=== PATIENT | female | born 1965 | race Two or more races ===

== ENCOUNTER 2023-07-04 16:40 | Inpatient (IN) | payer MEDICAID ==
[~2023-07-04] VITALS: Ht 170.2 cm; Wt 60.2 kg
[2023-07-04 17:30] LABS: Eosinophils # (auto) 0 10 ^3/uL (0-0.8); Monocytes # (auto) 0.5 10 ^3/uL (0-1.3); Nucleated Red Blood Cells % 0.1 %
[2023-07-04 17:31] LABS: Basophils # (auto) 0.2 10 ^3/uL (0-0.2); Basophils % (auto) 1.1 % (0.0-2.0); Eosinophils % (auto) 0.2 % (0.0-7.0); Hematocrit 28.3 % (36.0-46.0); Hemoglobin 8.4 g/dL (12.2-16.2); Lymphocytes # (auto) 0.2 10 ^3/uL (0.4-5.4); Lymphocytes % (auto) 1.7 % (10.0-50.0); Mean Corpuscular Hemoglobin 24.3 pg (28.0-32.0); Mean Corpuscular Hgb Conc. 29.7 g/dL (32.0-36.0); Mean Corpuscular Volume 81.7 fL (80.0-100.0); Monocytes % (auto) 3.4 % (0.0-12.0); Neutrophils # (auto) 13.3 10 ^3/uL (1.6-8.6); Neutrophils % (auto) 93.6 % (37.0-80.0); Red Blood Cells 3.46 10^6/uL (4.0-5.20); White Blood Cell 14.2 10^3/uL (4.4-10.8)
[2023-07-04 17:42] LABS: Alkaline Phosphatase 108 U/L (46-116); Anion Gap 7 (5-15); Aspartate Aminotransferase 15 U/L (13-40); BUN/Creatinine Ratio 9.2 (10.0-20.0); Blood Urea Nitrogen 7 mg/dL (9-23); Calcium 8.1 mg/dL (8.5-10.1); Carbon Dioxide 26 mmol/L (20-30); Chloride 104 mmol/L (98-107); Glucose 97 mg/dL (74-106); Sodium 137 mmol/L (136-145)
[2023-07-04 17:43] LABS: Bilirubin, Total 0.4 mg/dL (0.2-1.0); Total Protein 5.9 g/dL (5.7-8.2)
[2023-07-04 18:11] LABS: Red Cell Distribution Width 22.6 % (11.8-14.3)
[2023-07-04 18:19] LABS: Alanine Aminotransferase < 9 U/L (7-40)
[2023-07-04 18:20] LABS: Potassium 2.9 mmol/L (3.5-5.1)
[2023-07-04] MEDS ORDERED: POTASSIUM EFFERVESENT TAB 25 MEQ PO ONE (18:30)
[2023-07-05] VITALS (9 sets, daily range): BP systolic 91–103; BP diastolic 54–65; PULSE 96–109; RESP 17–19; TEMP 97.9–98.4; O2SAT 96–99
[2023-07-05] MEDS ORDERED: VANCOMYCIN 1GM/250ML 250 ML IV ONE (00:45)
[2023-07-05] MEDS ORDERED: LACTATED RINGER'S 1,950 ML IV ONE (00:45)
[2023-07-05] MEDS ORDERED: PIPERACILLIN-TAZOB 3.375GM 100 ML IV ONE (00:45)
[2023-07-05] MEDS ORDERED: ALBUTEROL SULF 2.5 MG/0.5ML(0.5%) NEB SOLN NEB PRN (01:15)
[2023-07-05] MEDS ORDERED: ONDANSETRON HCL 4 MG/2 ML VIAL IV PRN (01:15)
[2023-07-05] MEDS ORDERED: NITROGLYCERIN 0.4 MG SL TAB SL PRN (01:15)
[2023-07-05] MEDS ORDERED: HYDROcodone-ACET 5/325MG TAB PO PRN (01:15)
[2023-07-05] MEDS ORDERED: MORPHINE SULFATE INJ 2 MG/ml SYRG IV PRN (01:15)
[2023-07-05] MEDS ORDERED: ACETAMINOPHEN 325 MG TAB PO PRN (01:15)
[2023-07-05 08:55] LABS: Urine Bacteria MANY /hpf (None Seen); Urine Blood 1+ /uL (Negative); Urine Clarity CLOUDY (Clear); Urine Color Yellow (Yellow); Urine Mucus FEW (None Seen); Urine Protein, UAD 2+ (Negative); Urine Specific Gravity 1.022 (1.001-1.035); Urine WBC 378 /hpf (0 - 5)
[2023-07-05] MEDS: AZITHROMYCIN 500MG/ 250ML 250 ML IV SCH (09:20)
[2023-07-05] MEDS: cefTRIAXone 1GM/50ML D5W 50 ML IV SCH (09:20)
[2023-07-05 12:46] LABS: Basophils # (auto) 0 10 ^3/uL (0-0.2); Eosinophils # (auto) 0 10 ^3/uL (0-0.8); Hemoglobin 8.1 g/dL (12.2-16.2); Monocytes # (auto) 0.6 10 ^3/uL (0-1.3); Neutrophils # (auto) 11.1 10 ^3/uL (1.6-8.6); Nucleated Red Blood Cells % 0.1 %
[2023-07-05 12:47] LABS: Basophils % (auto) 0.1 % (0.0-2.0); Eosinophils % (auto) 0.1 % (0.0-7.0); Hematocrit 27.6 % (36.0-46.0); Lymphocytes # (auto) 0.2 10 ^3/uL (0.4-5.4); Lymphocytes % (auto) 1.7 % (10.0-50.0); Mean Corpuscular Hemoglobin 24.2 pg (28.0-32.0); Mean Corpuscular Hgb Conc. 29.4 g/dL (32.0-36.0); Mean Corpuscular Volume 82.2 fL (80.0-100.0); Monocytes % (auto) 5.1 % (0.0-12.0); Red Blood Cells 3.36 10^6/uL (4.0-5.20); White Blood Cell 11.9 10^3/uL (4.4-10.8)
[2023-07-05 12:52] LABS: Red Cell Distribution Width 23.4 % (11.8-14.3)
[2023-07-05 13:47] LABS: Albumin 2.8 g/dL (3.2-4.8); Alkaline Phosphatase 98 U/L (46-116); Anion Gap 6 (5-15); Aspartate Aminotransferase 15 U/L (13-40); BUN/Creatinine Ratio 11.3 (10.0-20.0); Bilirubin, Total 0.4 mg/dL (0.2-1.0); Blood Urea Nitrogen 8 mg/dL (9-23); Calcium 8.1 mg/dL (8.5-10.1); Carbon Dioxide 28 mmol/L (20-30); Chloride 104 mmol/L (98-107); Glucose 102 mg/dL (74-106); Potassium 3.6 mmol/L (3.5-5.1); Sodium 138 mmol/L (136-145); Total Protein 5.4 g/dL (5.7-8.2)
[2023-07-05 13:49] LABS: Alanine Aminotransferase < 9 U/L (7-40)
[2023-07-05] MEDS ORDERED: LOPERAMIDE HCL 2 MG CAP/TAB PO PRN (16:30)
[2023-07-06] VITALS (9 sets, daily range): BP systolic 90–97; BP diastolic 52–57; PULSE 91–95; RESP 15–19; TEMP 98–99.3; O2SAT 95–100
[2023-07-06 07:03] LABS: Alkaline Phosphatase 91 U/L (46-116); Anion Gap 8 (5-15); BUN/Creatinine Ratio 12.3 (10.0-20.0); Blood Urea Nitrogen 9 mg/dL (9-23); Calcium 7.7 mg/dL (8.5-10.1); Carbon Dioxide 27 mmol/L (20-30); Chloride 105 mmol/L (98-107); Glucose 71 mg/dL (74-106); Potassium 3.2 mmol/L (3.5-5.1); Sodium 140 mmol/L (136-145)
[2023-07-06 07:04] LABS: Albumin 2.5 g/dL (3.2-4.8)
[2023-07-06 07:05] LABS: Aspartate Aminotransferase 13 U/L (13-40)
[2023-07-06 07:06] LABS: Bilirubin, Total 0.4 mg/dL (0.2-1.0)
[2023-07-06 07:12] LABS: Alanine Aminotransferase < 9 U/L (7-40)
[2023-07-06 07:19] LABS: Basophils # (auto) 0 10 ^3/uL (0-0.2); Basophils % (auto) 0.1 % (0.0-2.0); Eosinophils # (auto) 0 10 ^3/uL (0-0.8); Eosinophils % (auto) 0.2 % (0.0-7.0); Hematocrit 23.8 % (36.0-46.0); Hemoglobin 7.5 g/dL (12.2-16.2); Lymphocytes # (auto) 0.2 10 ^3/uL (0.4-5.4); Lymphocytes % (auto) 2.1 % (10.0-50.0); Mean Corpuscular Hemoglobin 25.4 pg (28.0-32.0); Mean Corpuscular Hgb Conc. 31.3 g/dL (32.0-36.0); Mean Corpuscular Volume 81.2 fL (80.0-100.0); Monocytes # (auto) 0.5 10 ^3/uL (0-1.3); Monocytes % (auto) 4.8 % (0.0-12.0); Neutrophils # (auto) 10.3 10 ^3/uL (1.6-8.6); Neutrophils % (auto) 92.8 % (37.0-80.0); Red Blood Cells 2.94 10^6/uL (4.0-5.20); White Blood Cell 11.1 10^3/uL (4.4-10.8)
[2023-07-06 07:22] LABS: Red Cell Distribution Width 22.9 % (11.8-14.3)
[2023-07-06] MEDS: cefTRIAXone 1GM/50ML D5W 50 ML IV SCH (09:49)
[2023-07-06 10:26] LABS: Platelet Estimate Adequate
[2023-07-06 10:27] LABS: Anisocytosis Slight; Hypochromia Slight; Ovalocytes MODERATE
[2023-07-06] MEDS: AZITHROMYCIN 500MG/ 250ML 250 ML IV SCH (10:50)
[2023-07-07] VITALS (8 sets, daily range): BP systolic 91–110; BP diastolic 55–70; PULSE 90–119; RESP 16–17; TEMP 98.1–98.9; O2SAT 97–100
[2023-07-07] MEDS: cefTRIAXone 1GM/50ML D5W 50 ML IV SCH (09:11)
[2023-07-07] MEDS: AZITHROMYCIN 500MG/ 250ML 250 ML IV SCH (11:03)
[2023-07-08 00:18] VITALS: BP 110/70; PULSE 98; RESP 18; TEMP 98; O2SAT 97
[2023-07-08 05:00] VITALS: BP 102/59; PULSE 106; RESP 16; TEMP 99.8; O2SAT 97
[2023-07-08] MEDS: cefTRIAXone 1GM/50ML D5W 50 ML IV SCH (08:40)
[2023-07-08 09:00] VITALS: BP 96/57; PULSE 93; RESP 15; TEMP 98.4; O2SAT 99
[2023-07-08] MEDS: AZITHROMYCIN 500MG/ 250ML 250 ML IV SCH (09:51)
[2023-07-08] MEDS ORDERED: AZIT-74 PO (12:04)
[2023-07-08] MEDS ORDERED: POTASSIUM CHL 20 Meq TABLET PO ONE (12:45)
[2023-07-08 13:00] VITALS: BP 91/59; PULSE 91; RESP 18; TEMP 98.2; O2SAT 98
[2023-07-08 13:06] VITALS: BP 91/59; PULSE 91; RESP 18; TEMP 98.2; O2SAT 98
== END 2023-07-08 15:00 | disposition home or self-care (01) | DRG 139 ==
LOC: ER 16:40 → TELE 07-05 01:12 → TELE-WESTW 07-05 14:43
PROVIDERS: ADMIT Internal Medicine; ATTEND Internal Medicine
DX: J15.9 Unspecified bacterial pneumonia (principal); E83.51 Hypocalcemia; E88.09 Other disorders of plasma-protein metabolism, not elsewhere classified; D64.9 Anemia, unspecified; E86.0 Dehydration; E87.6 Hypokalemia; D72.829 Elevated white blood cell count, unspecified; Z85.72 Personal history of non-Hodgkin lymphomas; R06.03 Acute respiratory distress
CPT/HCPCS: 36415; 71045; 80053; 81001; 82962; 83605; 84484; 85025; 99291; G0378; J0696

== ENCOUNTER 2023-09-01 12:36 | Inpatient (IN) | payer MEDICAID ==
[~2023-09-01] VITALS: Ht 171.4 cm; Wt 55.2 kg
[~2023-09-01 12:36] MED LIST: AZIT-74 PO
[2023-09-01] MEDS ORDERED: SODIUM CHLORIDE 0.9% 1,000 ML IVB ONE (13:00)
[2023-09-01 13:17] LABS: Hematocrit 16.4 % (36.0-46.0); Mean Corpuscular Hemoglobin 24.3 pg (28.0-32.0); Red Blood Cells 2.02 10^6/uL (4.0-5.20)
[2023-09-01 13:53] LABS: Hemoglobin 4.9 g/dL (12.2-16.2); Red Cell Distribution Width 24.9 % (11.8-14.3)
[2023-09-01 13:55] LABS: Albumin 1.9 g/dL (3.2-4.8); Alkaline Phosphatase 131 U/L (46-116); Anion Gap 11 (5-15); Aspartate Aminotransferase 13 U/L (13-40); BUN/Creatinine Ratio 18.6 (10.0-20.0); Bilirubin, Total 0.4 mg/dL (0.2-1.0); Blood Urea Nitrogen 34 mg/dL (9-23); Calcium 6.7 mg/dL (8.7-10.4); Carbon Dioxide 24 mmol/L (20-30); Chloride 105 mmol/L (98-107); Glucose 98 mg/dL (74-106); Magnesium 1.6 mg/dL (1.6-2.6); Potassium 2.5 mmol/L (3.5-5.1); Sodium 140 mmol/L (136-145)
[2023-09-01 13:56] LABS: Basophils % (manual) 0 (0.0-2.0); Eosinophils % (manual) 0 (0-7); Monocytes % (manual) 0 (0-12); Total Protein 3.9 g/dL (5.7-8.2)
[2023-09-01 13:57] LABS: Blast Cells 0; Metamyelocytes % 0; Myelocytes % 0; Promyelocytes % 0; Reactive Lymphocytes 0
[2023-09-01 13:58] LABS: Alanine Aminotransferase < 9 U/L (7-40)
[2023-09-01] MEDS ORDERED: POTASSIUM CHLORIDE 40 MEQ, LIDOCAINE 1% (LOCAL ANESTH.) 4 ML in SODIUM CHL 0.9% 250 ML IV ONE (14:30)
[2023-09-01 14:52] LABS: Lactic Acid w/Reflex 2.5 mmol/L (0.4-2.0)
[2023-09-01 15:13] LABS: Band Neutrophils % (manual) 1; Lymphocytes % (manual) 3 (10.0-50.0)
[2023-09-01 15:14] LABS: Platelet Estimate Decreased
[2023-09-01 15:22] LABS: INR 1.18 (0.9-1.15); Prothrombin Time 12.3 sec (9.3-11.8)
[2023-09-01 19:20] VITALS: PULSE 102; RESP 18; O2SAT 92
[2023-09-01] MEDS ORDERED: MORPHINE SULFATE INJ 2 MG/ml SYRG IV PRN (20:30)
[2023-09-01] MEDS ORDERED: ONDANSETRON HCL 4 MG/2 ML VIAL IV PRN (20:30)
[2023-09-01] MEDS ORDERED: DOCUSATE SOD 100 MG CAP PO PRN (20:30)
[2023-09-01] MEDS ORDERED: ACETAMINOPHEN 325 MG TAB PO PRN (20:30)
[2023-09-01] MEDS ORDERED: HYDROcodone-ACET 5/325MG TAB PO PRN (20:30)
[2023-09-01] MEDS ORDERED: diphenhdrAMINE HCL 50 MG/1 ML VL IV ONE (20:45)
[2023-09-01 21:18] LABS: Basophils # (auto) 0 10 ^3/uL (0-0.2); Eosinophils # (auto) 0 10 ^3/uL (0-0.8); Eosinophils % (auto) 0.1 % (0.0-7.0); Monocytes # (auto) 0.5 10 ^3/uL (0-1.3)
[2023-09-01 21:19] LABS: Lymphocytes # (auto) 0.3 10 ^3/uL (0.4-5.4); Lymphocytes % (auto) 2.1 % (10.0-50.0); Mean Corpuscular Hemoglobin 23.9 pg (28.0-32.0); Mean Corpuscular Hgb Conc. 28.2 g/dL (32.0-36.0); Mean Corpuscular Volume 84.6 fL (80.0-100.0); Monocytes % (auto) 3.1 % (0.0-12.0); Neutrophils # (auto) 14.4 10 ^3/uL (1.6-8.6); Neutrophils % (auto) 94.7 % (37.0-80.0); Nucleated Red Blood Cells % 0.1 %; Red Blood Cells 1.77 10^6/uL (4.0-5.20); Red Cell Distribution Width 24.8 % (11.8-14.3); White Blood Cell 15.2 10^3/uL (4.4-10.8)
[2023-09-01 21:21] LABS: Hemoglobin 4.2 g/dL (12.2-16.2)
[2023-09-01 21:27] LABS: Chloride 107 mmol/L (98-107); Potassium 2.6 mmol/L (3.5-5.1); Sodium 141 mmol/L (136-145)
[2023-09-01 21:28] LABS: Anion Gap 12 (5-15); Calcium 6.5 mg/dL (8.7-10.4); Carbon Dioxide 22 mmol/L (20-30)
[2023-09-01 21:33] LABS: BUN/Creatinine Ratio 12.7 (10.0-20.0); Blood Urea Nitrogen 23 mg/dL (9-23); Glucose 78 mg/dL (74-106)
[2023-09-01 21:50] VITALS: BP 83/50; PULSE 99; RESP 18; TEMP 97.5
[2023-09-01 22:05] VITALS: BP 70/39; PULSE 100; RESP 22; TEMP 97.9
[2023-09-01] MEDS: SODIUM CHLORIDE 0.9% 1,000 ML IV SCH (23:57)
[2023-09-02] VITALS (10 sets, daily range): BP systolic 78–97; BP diastolic 43–62; PULSE 81–100; RESP 18–22; TEMP 97.6–98; O2SAT 94–100
[2023-09-02 01:57] LABS: Urine Bacteria NONE SEEN /hpf (None Seen); Urine Blood 2+ /uL (Negative); Urine Clarity CLOUDY (Clear); Urine Color Yellow (Yellow); Urine Protein, UAD 1+ (Negative); Urine Specific Gravity 1.017 (1.001-1.035); Urine Urobilinogen Normal (Negative); Urine WBC 1295 /hpf (0 - 5); Urine WBC Clumps PRESENT /hpf (None Seen); Urine pH 5.5 (5.0-8.0)
[2023-09-02] MEDS ORDERED: MAGNESIUM SULFATE 1GM/100ML 100 ML IV ONE (02:49)
[2023-09-02] MEDS: MAGNESIUM SULFATE 1GM/100ML 100 ML IV SCH ×4 (03:10→18:09)
[2023-09-02] MEDS ORDERED: cefTRIAXone 1GM/50ML D5W 50 ML IV ONE (04:15)
[2023-09-02 04:20] LABS: Basophils # (auto) 0 10 ^3/uL (0-0.2); Eosinophils # (auto) 0 10 ^3/uL (0-0.8); Eosinophils % (auto) 0.1 % (0.0-7.0); Hemoglobin 9.5 g/dL (12.2-16.2); Lymphocytes # (auto) 0.3 10 ^3/uL (0.4-5.4); Lymphocytes % (auto) 1.8 % (10.0-50.0); Mean Corpuscular Hemoglobin 27.3 pg (28.0-32.0); Mean Corpuscular Hgb Conc. 32.7 g/dL (32.0-36.0); Mean Corpuscular Volume 83.4 fL (80.0-100.0); Monocytes # (auto) 0.5 10 ^3/uL (0-1.3); Monocytes % (auto) 2.6 % (0.0-12.0); Neutrophils # (auto) 16.8 10 ^3/uL (1.6-8.6); Neutrophils % (auto) 95.5 % (37.0-80.0); Nucleated Red Blood Cells % 0.2 %; Red Blood Cells 3.47 10^6/uL (4.0-5.20); Red Cell Distribution Width 17.8 % (11.8-14.3); White Blood Cell 17.6 10^3/uL (4.4-10.8)
[2023-09-02 04:39] LABS: Albumin 1.9 g/dL (3.2-4.8); Alkaline Phosphatase 130 U/L (46-116); Anion Gap 10 (5-15); Aspartate Aminotransferase 16 U/L (13-40); BUN/Creatinine Ratio 15.1 (10.0-20.0); Blood Urea Nitrogen 26 mg/dL (9-23); Calcium 6.7 mg/dL (8.7-10.4); Carbon Dioxide 23 mmol/L (20-30); Chloride 107 mmol/L (98-107); Glucose 84 mg/dL (74-106); Potassium 2.5 mmol/L (3.5-5.1); Sodium 140 mmol/L (136-145)
[2023-09-02 04:40] LABS: Bilirubin, Total 1.5 mg/dL (0.2-1.0); Total Protein 3.9 g/dL (5.7-8.2)
[2023-09-02 04:42] LABS: Alanine Aminotransferase < 9 U/L (7-40)
[2023-09-02] MEDS ORDERED: LACTATED RINGER'S 2,000 ML IV ONE (04:45)
[2023-09-02] MEDS ORDERED: metroNIDAZOLE 500MG/100ML 100 ML IV ONE (04:45)
[2023-09-02] MEDS: SODIUM CHLORIDE 0.9% 1,000 ML IV SCH ×4 (06:49→22:45)
[2023-09-02] MEDS ORDERED: POTASSIUM EFFERVESENT TAB 25 MEQ GT ONE (08:00)
[2023-09-02] MEDS ORDERED: ENOXAPARIN SOD 30 MG/0.3 ML SYRINGE SC SCH (10:00)
[2023-09-02] MEDS ORDERED: ENOXAPARIN SOD 40 MG/0.4 ML SYRINGE SC SCH (10:00)
[2023-09-02] MEDS ORDERED: AZITHROMYCIN 500MG/ 250ML 250 ML IV SCH (10:00)
[2023-09-02] MEDS ORDERED: DOXYCYCLINE 100 MG TAB/CAP PO SCH (12:45)
[2023-09-02] MEDS ORDERED: SOD CHL 0.9%/ KCL 20MEQ 1,000 ML IV SCH (13:45)
[2023-09-02] MEDS ORDERED: POTASSIUM CHLORIDE 40 MEQ, LIDOCAINE 1% (LOCAL ANESTH.) 4 ML in SODIUM CHL 0.9% 250 ML IV ONE (13:45)
[2023-09-02] MEDS ORDERED: SODIUM CHLORIDE 0.9% 1,000 ML IV ONE (14:45)
[2023-09-02] MEDS ORDERED: VANCOMYCIN 1GM/200ML 200 ML IV ONE (17:15)
[2023-09-02 21:03] LABS: Potassium 3.2 mmol/L (3.5-5.1)
[2023-09-02 21:10] LABS: Magnesium 2.4 mg/dL (1.6-2.6)
[2023-09-02] MEDS: MAGNESIUM OXIDE 400 MG TAB PO SCH (21:35)
[2023-09-03 05:00] VITALS: BP 95/56; PULSE 97; RESP 18; TEMP 97.9; O2SAT 94
[2023-09-03 06:49] LABS: Hemoglobin 9.4 g/dL (12.2-16.2); Red Blood Cells 3.52 10^6/uL (4.0-5.20)
[2023-09-03 06:51] LABS: Hematocrit 29.4 % (36.0-46.0); Mean Corpuscular Hemoglobin 26.7 pg (28.0-32.0); Mean Corpuscular Volume 83.5 fL (80.0-100.0); Red Cell Distribution Width 18.3 % (11.8-14.3); White Blood Cell 20.6 10^3/uL (4.4-10.8)
[2023-09-03 06:57] LABS: Chloride 109 mmol/L (98-107); Potassium 3.4 mmol/L (3.5-5.1); Sodium 141 mmol/L (136-145)
[2023-09-03 06:58] LABS: Anion Gap 10 (5-15); Calcium 6.9 mg/dL (8.7-10.4); Carbon Dioxide 22 mmol/L (20-30)
[2023-09-03 07:03] LABS: BUN/Creatinine Ratio 15.6 (10.0-20.0); Blood Urea Nitrogen 23 mg/dL (9-23); Glucose 67 mg/dL (74-106)
[2023-09-03 07:04] LABS: Magnesium 2.2 mg/dL (1.6-2.6)
[2023-09-03 07:20] LABS: Band Neutrophils % (manual) 0; Basophils % (manual) 0 (0.0-2.0); Blast Cells 0; Eosinophils % (manual) 0 (0-7); Metamyelocytes % 0; Myelocytes % 0; Promyelocytes % 0; Reactive Lymphocytes 0
[2023-09-03 08:00] VITALS: BP 89/71; PULSE 101; PULSE 89; RESP 18; RESP 20; TEMP 98.3; O2SAT 95; O2SAT 96
[2023-09-03 09:11] LABS: Lymphocytes % (manual) 1 (10.0-50.0); Monocytes % (manual) 1 (0-12); Platelet Estimate Decreased
[2023-09-03] MEDS: cefTRIAXone 1GM/50ML D5W 50 ML IV SCH (09:45)
[2023-09-03] MEDS: MAGNESIUM OXIDE 400 MG TAB PO SCH (09:46)
[2023-09-03] MEDS: SODIUM CHLORIDE 0.9% 1,000 ML IV SCH ×2 (09:46→22:45)
[2023-09-03] MEDS: PANTOPRAZOLE 40 MG TAB PO SCH (09:46)
[2023-09-03] MEDS ORDERED: POTASSIUM CHL 20 Meq TABLET PO ONE (10:15)
[2023-09-03] MEDS ORDERED: FLUDROCORTISONE ACETATE 0.1 MG TAB PO ONE (10:15)
[2023-09-03] MEDS ORDERED: VANCOMYCIN PER PHARMACY 0 MG IV SCH (10:15)
[2023-09-03] MEDS ORDERED: VANCOMYCIN 1GM/200ML 200 ML IV ONE ×2 (11:45→20:00)
[2023-09-03] MEDS: guaiFENesin-DM 100/10mg/5ml SYR PO PRN ×2 (13:21→22:41)
[2023-09-03] MEDS: diphenhdrAMINE HCL 25 MG CAP PO PRN (13:22)
[2023-09-03 14:00] VITALS: BP 97/60
[2023-09-03 16:49] VITALS: BP 94/60; PULSE 94; RESP 18; TEMP 97.6; O2SAT 92
[2023-09-03 20:00] VITALS: BP 102/65; PULSE 93; PULSE 98; RESP 17; TEMP 98.2; O2SAT 96
[2023-09-03 22:22] VITALS: BP 102/65; PULSE 93; RESP 17; TEMP 98.2; O2SAT 96
[2023-09-04] VITALS (11 sets, daily range): BP systolic 82–103; BP diastolic 52–71; PULSE 86–107; RESP 17–19; TEMP 97.9–98.2; O2SAT 94–100
[2023-09-04] MEDS ORDERED: ALBUTEROL SULF 2.5 MG/0.5ML(0.5%) NEB SOLN NEB PRN (00:30)
[2023-09-04] MEDS: SODIUM CHLORIDE 0.9% 1,000 ML IV SCH ×2 (06:33→18:55)
[2023-09-04 08:25] LABS: Hemoglobin 8.9 g/dL (12.2-16.2); Mean Corpuscular Hemoglobin 26.8 pg (28.0-32.0); Mean Corpuscular Hgb Conc. 30.9 g/dL (32.0-36.0); Mean Corpuscular Volume 86.9 fL (80.0-100.0); Red Blood Cells 3.33 10^6/uL (4.0-5.20); Red Cell Distribution Width 19.2 % (11.8-14.3); White Blood Cell 24.4 10^3/uL (4.4-10.8)
[2023-09-04 08:27] LABS: Basophils % (manual) 0 (0.0-2.0); Blast Cells 0; Eosinophils % (manual) 0 (0-7); Metamyelocytes % 0; Myelocytes % 0; Promyelocytes % 0; Reactive Lymphocytes 0
[2023-09-04 08:33] LABS: Chloride 112 mmol/L (98-107); Sodium 142 mmol/L (136-145)
[2023-09-04 08:34] LABS: Anion Gap 9 (5-15); Calcium 7.3 mg/dL (8.5-10.1); Carbon Dioxide 21 mmol/L (20-30)
[2023-09-04 08:39] LABS: Blood Urea Nitrogen 20 mg/dL (9-23); Glucose 87 mg/dL (74-106)
[2023-09-04 10:18] LABS: Band Neutrophils % (manual) 3; Lymphocytes % (manual) 1 (10.0-50.0); Monocytes % (manual) 1 (0-12); Platelet Estimate Decreased
[2023-09-04] MEDS: PANTOPRAZOLE 40 MG TAB PO SCH (10:59)
[2023-09-04] MEDS: FLUDROCORTISONE ACETATE 0.1 MG TAB PO SCH (10:59)
[2023-09-04] MEDS: cefTRIAXone 1GM/50ML D5W 50 ML IV SCH (10:59)
[2023-09-04] MEDS: MAGNESIUM OXIDE 400 MG TAB PO SCH (10:59)
[2023-09-04] MEDS: guaiFENesin-DM 100/10mg/5ml SYR PO PRN (11:00)
[2023-09-04] MEDS: diphenhdrAMINE HCL 25 MG CAP PO PRN (11:02)
[2023-09-04] MEDS ORDERED: CEFEPIME 1GM/ 50ML 50 ML IV ONE (12:15)
[2023-09-04] MEDS ORDERED: hydrOXYzine HCL 10 MG TAB PO PRN (16:15)
[2023-09-04] MEDS ORDERED: PROMETHAZINE W/CODEINE 5 ML ORAL SYRUP PO PRN (16:15)
[2023-09-04] MEDS ORDERED: PROMETHAZINE HCL 25 MG/ML 1ML IV PRN (16:15)
[2023-09-04 17:49] LABS: INR 1.25 (0.9-1.15); Partial Thromboplastin Time 29.9 SEC (24.5-34.5); Prothrombin Time 12.9 sec (9.3-11.8)
[2023-09-04 17:51] LABS: % Iron Saturation 27.3 % (15-50)
[2023-09-04] MEDS: HYDROCORTISONE 2.5% TOPICAL CREAM 30GM TUBE TOP SCH (20:59)
[2023-09-04] MEDS: CEFEPIME 1GM/ 50ML 50 ML IV SCH (20:59)
[2023-09-05] VITALS (9 sets, daily range): BP systolic 75–89; BP diastolic 51–61; PULSE 94–110; RESP 17–20; TEMP 97.6–98.3; O2SAT 92–100
[2023-09-05] MEDS: SODIUM CHLORIDE 0.9% 1,000 ML IV SCH ×2 (04:20→17:40)
[2023-09-05] MEDS: FLUDROCORTISONE ACETATE 0.1 MG TAB PO SCH (10:20)
[2023-09-05] MEDS: CEFEPIME 1GM/ 50ML 50 ML IV SCH ×2 (10:20→23:04)
[2023-09-05] MEDS: PANTOPRAZOLE 40 MG TAB PO SCH (10:20)
[2023-09-05] MEDS: MAGNESIUM OXIDE 400 MG TAB PO SCH (10:20)
[2023-09-05] MEDS: HYDROCORTISONE 2.5% TOPICAL CREAM 30GM TUBE TOP SCH ×2 (10:21→23:04)
[2023-09-05] MEDS ORDERED: HYDROCORTISONE SOD SUCC 100 MG/2ML INJ VIAL IV ONE (13:30)
[2023-09-05] MEDS: ALBUMIN 25% 100 ML IV SCH ×2 (14:08→21:27)
[2023-09-05 14:12] LABS: Body Fluid Polymorphonuclear 94 % (0-25); Body Fluid Red Blood Cells 2140 CUMM (0-2000); Body Fluid White Blood Cells 1330 CUMM (0-200)
[2023-09-05 22:35] LABS: Hematocrit 26.7 % (36.0-46.0); Red Blood Cells 2.95 10^6/uL (4.0-5.20)
[2023-09-05 22:39] LABS: Hemoglobin 7.9 g/dL (12.2-16.2); Mean Corpuscular Hemoglobin 26.7 pg (28.0-32.0); Mean Corpuscular Hgb Conc. 29.6 g/dL (32.0-36.0); Mean Corpuscular Volume 90.2 fL (80.0-100.0); White Blood Cell 12.9 10^3/uL (4.4-10.8)
[2023-09-05 22:45] LABS: Basophils % (manual) 0 (0.0-2.0); Blast Cells 0; Eosinophils % (manual) 0 (0-7); Metamyelocytes % 0; Myelocytes % 0; Promyelocytes % 0; Reactive Lymphocytes 0; Red Cell Distribution Width 20.2 % (11.8-14.3)
[2023-09-05 22:51] LABS: Chloride 109 mmol/L (98-107); Potassium 4.1 mmol/L (3.5-5.1)
[2023-09-05 22:52] LABS: Anion Gap 10 (5-15); Carbon Dioxide 17 mmol/L (20-30)
[2023-09-05 22:53] LABS: Calcium 7.1 mg/dL (8.7-10.4)
[2023-09-05 22:57] LABS: BUN/Creatinine Ratio 10.9 (10.0-20.0); Blood Urea Nitrogen 19 mg/dL (9-23); Glucose 155 mg/dL (74-106)
[2023-09-05 23:05] LABS: Sodium 136 mmol/L (136-145)
[2023-09-05 23:12] LABS: Band Neutrophils % (manual) 2; Lymphocytes % (manual) 1 (10.0-50.0); Monocytes % (manual) 1 (0-12)
[2023-09-05 23:14] LABS: Platelet Estimate Decreased
[2023-09-06] VITALS (9 sets, daily range): BP systolic 86–95; BP diastolic 53–61; PULSE 63–98; RESP 17–20; TEMP 97.5–98.1; O2SAT 92–96
[2023-09-06] MEDS: FLUDROCORTISONE ACETATE 0.1 MG TAB PO SCH ×3 (08:59→21:58)
[2023-09-06] MEDS: CEFEPIME 1GM/ 50ML 50 ML IV SCH ×2 (08:59→21:52)
[2023-09-06] MEDS: PANTOPRAZOLE 40 MG TAB PO SCH (09:00)
[2023-09-06] MEDS: MAGNESIUM OXIDE 400 MG TAB PO SCH (09:00)
[2023-09-06] MEDS: HYDROCORTISONE 2.5% TOPICAL CREAM 30GM TUBE TOP SCH ×2 (09:46→22:00)
[2023-09-06 10:06] LABS: Albumin, Body Fluid 0.5 g/dL (Not Estab.); Protein, Body Fluid 1.6 g/dL (.)
[2023-09-06] MEDS: ALBUMIN 25% 100 ML IV SCH (10:30)
[2023-09-06] MEDS: SODIUM CHLORIDE 0.9% 1,000 ML IV SCH ×2 (12:29→20:20)
[2023-09-06] MEDS ORDERED: ALBUMIN 25% 100 ML IV ONE (12:30)
[2023-09-07 05:00] VITALS: BP_SYST 118; BP_SYST 139; BP_DIAS 66; BP_DIAS 76; PULSE 64; PULSE 83; RESP 19; TEMP 97.4; TEMP 98; O2SAT 90; O2SAT 91
[2023-09-07] MEDS: FLUDROCORTISONE ACETATE 0.1 MG TAB PO SCH ×2 (06:36→14:04)
[2023-09-07 08:00] VITALS: PULSE 61
[2023-09-07 08:20] VITALS: BP 95/67; PULSE 83; RESP 20; TEMP 97.9; O2SAT 99
[2023-09-07 09:11] VITALS: BP 95/67; PULSE 83; RESP 20; O2SAT 99
[2023-09-07] MEDS: SODIUM CHLORIDE 0.9% 1,000 ML IV SCH (09:40)
[2023-09-07] MEDS: HYDROCORTISONE 2.5% TOPICAL CREAM 30GM TUBE TOP SCH (09:43)
[2023-09-07] MEDS: CEFEPIME 1GM/ 50ML 50 ML IV SCH (09:52)
[2023-09-07] MEDS: MAGNESIUM OXIDE 400 MG TAB PO SCH (09:55)
[2023-09-07] MEDS: PANTOPRAZOLE 40 MG TAB PO SCH (09:55)
[2023-09-07 12:20] VITALS: BP 96/66; PULSE 78; RESP 20; TEMP 99.7; O2SAT 95
[2023-09-07 16:15] VITALS: BP 105/68; PULSE 96; RESP 22; TEMP 98.1; O2SAT 93
== END 2023-09-07 19:45 | DRG 720 ==
LOC: EDBD 12:36 → ER 12:36 → TELE 20:32 → TELE-WESTW 23:52 → TELE 09-02 00:04 → TELE-WESTW 09-02 15:22
PROVIDERS: ADMIT Internal Medicine; ATTEND Hospitalist
PROC: 30233N1 Transfusion of Nonautologous Red Blood Cells into Peripheral Vein, Percutaneous Approach (ICD-10-PCS; principal; 2023-09-01)
PROC: 0W9B3ZZ Drainage of Left Pleural Cavity, Percutaneous Approach (ICD-10-PCS; 2023-09-05)
DX: A41.9 Sepsis, unspecified organism (principal); E43 Unspecified severe protein-calorie malnutrition; E87.20 Acidosis, unspecified; J18.9 Pneumonia, unspecified organism; J90 Pleural effusion, not elsewhere classified; N17.9 Acute kidney failure, unspecified; E77.8 Other disorders of glycoprotein metabolism; D64.9 Anemia, unspecified; E87.6 Hypokalemia; I12.9 Hypertensive chronic kidney disease with stage 1 through stage 4 chronic kidney disease, or unspecified chronic kidney disease; N18.9 Chronic kidney disease, unspecified; J98.11 Atelectasis; E83.42 Hypomagnesemia; K52.9 Noninfective gastroenteritis and colitis, unspecified; N13.6 Pyonephrosis; Z68.1 Body mass index [BMI] 19.9 or less, adult; Z85.71 Personal history of Hodgkin lymphoma
CPT/HCPCS: 36415; 36430; 71045; 74176; 76604; 76942; 80048; 80053; 80202; 81001; 82270; 83540; 83550; 83605; 83735; 83986; 84132; 84484; 85007; 85025; 85027; 85384; 85610; 85730; 86850; 86900; 86901; 86920; 87040; 87045; 87077; 87086; 87186; 87205; 87427; 87493; 89051; 93005; 94640; 97110; 97116; 97163; 97530; G0378; J2001; J2405; J3490; P9047

== ENCOUNTER 2023-09-09 00:28 | Inpatient (IN) | payer MEDICAID ==
[~2023-09-09] VITALS: Ht 172.7 cm; Wt 96.1 kg
[2023-09-09] VITALS (16 sets, daily range): BP systolic 108; BP diastolic 70; PULSE 82–121; RESP 12–20; O2SAT 91–98
[2023-09-09] MEDS ORDERED: DEXTROSE 50% SYRINGE 50 ML IV ONE (00:56)
[2023-09-09] MEDS ORDERED: cefTRIAXone SOD 1,000 MG VL IV ONE (01:00)
[2023-09-09] MEDS ORDERED: DEXTROSE (50%) 50ML SYRG IV ONE (01:00)
[2023-09-09] MEDS ORDERED: cefTRIAXone 1GM/50ML D5W 50 ML IV ONE (01:30)
[2023-09-09 01:32] LABS: Urine Epithelial Cast None Seen /hpf (<5)
[2023-09-09 01:47] LABS: Mean Corpuscular Hemoglobin 26.8 pg (28.0-32.0); Mean Corpuscular Hgb Conc. 31.1 g/dL (32.0-36.0); White Blood Cell 29.2 10^3/uL (4.4-10.8)
[2023-09-09 01:50] LABS: Urine Bacteria NONE SEEN /hpf (None Seen); Urine Blood 3+ /uL (Negative); Urine Clarity CLOUDY (Clear); Urine Color PINK (Yellow); Urine Protein, UAD 2+ (Negative); Urine Specific Gravity 1.013 (1.001-1.035); Urine Urobilinogen Normal (Negative); Urine WBC 757 /hpf (0 - 5); Urine WBC Clumps PRESENT /hpf (None Seen)
[2023-09-09 01:53] LABS: Hemoglobin 8.7 g/dL (12.2-16.2); Mean Corpuscular Volume 86.3 fL (80.0-100.0); Red Blood Cells 3.25 10^6/uL (4.0-5.20)
[2023-09-09 01:56] LABS: Red Cell Distribution Width 20.7 % (11.8-14.3)
[2023-09-09 01:57] LABS: Alanine Aminotransferase 10 U/L (7-40); Alkaline Phosphatase 102 U/L (46-116); Anion Gap 12 (5-15); BUN/Creatinine Ratio 13.7 (10.0-20.0); Blood Urea Nitrogen 28 mg/dL (9-23); Calcium 7.5 mg/dL (8.7-10.4); Carbon Dioxide 19 mmol/L (20-30); Chloride 112 mmol/L (98-107); Glucose 55 mg/dL (74-106); Potassium 3.8 mmol/L (3.5-5.1); Sodium 143 mmol/L (136-145)
[2023-09-09 01:58] LABS: Albumin 2.1 g/dL (3.2-4.8); Aspartate Aminotransferase 47 U/L (13-40); Bilirubin, Total 0.2 mg/dL (0.2-1.0); Total Protein 3.9 g/dL (5.7-8.2)
[2023-09-09 02:00] LABS: Band Neutrophils % (manual) 0; Basophils % (manual) 0 (0.0-2.0); Blast Cells 0; Eosinophils % (manual) 0 (0-7); Metamyelocytes % 0; Monocytes % (manual) 0 (0-12); Myelocytes % 0; Promyelocytes % 0; Reactive Lymphocytes 0
[2023-09-09 02:02] LABS: Lactic Acid w/Reflex 2.2 mmol/L (0.4-2.0)
[2023-09-09 02:06] LABS: Amphetamine Screen, Urine Neg (NEGATIVE)
[2023-09-09 02:07] LABS: Barbiturate Scree,Urine Neg (NEGATIVE); Benzodiazephine Screen, Urine Neg (NEGATIVE); Cannabinoid Screen, Urine Neg (NEGATIVE); Cocaine Screen, Urine Neg (NEGATIVE); Opiate Scree,Urine Pos (NEGATIVE); Phencyclidine Screen, Urine Neg (NEGATIVE)
[2023-09-09 03:11] LABS: Lymphocytes % (manual) 2 (10.0-50.0)
[2023-09-09 03:12] LABS: Platelet Estimate Decreased
[2023-09-09] MEDS ORDERED: SODIUM CHLORIDE 0.9% 1,000 ML IV ONE ×3 (03:15→13:15)
[2023-09-09] MEDS ORDERED: MORPHINE SULFATE INJ 2 MG/ml SYRG IV PRN (06:30)
[2023-09-09] MEDS ORDERED: DEXTROSE (50%) 50ML SYRG IV PRN (06:30)
[2023-09-09] MEDS ORDERED: NITROGLYCERIN 0.4 MG SL TAB SL PRN (06:30)
[2023-09-09] MEDS ORDERED: ONDANSETRON HCL 4 MG/2 ML VIAL IV PRN (06:30)
[2023-09-09] MEDS ORDERED: D5W/SOD CHL 0.45% 1,000 ML IV ONE (06:45)
[2023-09-09] MEDS: DexAMETHasone SOD PHOS 10MG/1ML VIAL INJ IV SCH ×2 (06:58→09:44)
[2023-09-09] MEDS: NOREPINEPHRINE 8 MG/250ML KIT 250 ML IV SCH (07:02)
[2023-09-09 07:15] LABS: Rapid Influenza A Positive (Negative); Rapid Influenza B Negative (Negative)
[2023-09-09 07:18] LABS: COVID19 ANTIGEN SOFIA FIA NEGATIVE (NEGATIVE)
[2023-09-09 07:44] LABS: Base Excess -8.5 mmol/L (-2.0-2.0)
[2023-09-09] MEDS: D5W/SOD CHL 0.45% 1,000 ML IV SCH ×2 (08:35→16:21)
[2023-09-09] MEDS: IPRATROPIUM BROM 0.5 MG/2.5ML INH SOL NEB SCH ×4 (09:31→22:17)
[2023-09-09] MEDS: ALBUTEROL SULF 2.5 MG/0.5ML(0.5%) NEB SOLN NEB SCH ×4 (09:31→22:17)
[2023-09-09] MEDS: PANTOPRAZOLE 40 MG/10 ML VIAL INJ IV SCH (09:44)
[2023-09-09] MEDS ORDERED: cefTRIAXone 1GM/50ML D5W 50 ML IV SCH (10:00)
[2023-09-09] MEDS: ACCU-CHEK COMFORT CURVE STRIP VI SCH ×2 (12:07→17:33)
[2023-09-09] MEDS: InsuLIN REG 1unit/0.01ml Soln (100units/ml) SC SCH ×2 (12:13→17:34)
[2023-09-09 12:59] LABS: Lactic Acid w/Reflex 2.1 mmol/L (0.4-2.0)
[2023-09-09] MEDS ORDERED: OSELTAMIVIR 75 MG CAP PO SCH (13:15)
[2023-09-09] MEDS ORDERED: VANCOMYCIN PER PHARMACY 0 MG IV SCH (13:15)
[2023-09-09] MEDS ORDERED: VANCOMYCIN 750mg/150ml 250 ML IV ONE (13:15)
[2023-09-09 17:12] LABS: Lactic Acid w/Reflex 2.4 mmol/L (0.4-2.0)
[2023-09-09] MEDS ORDERED: SODIUM CHLORIDE 0.9% 500 ML IV ONE (17:30)
[2023-09-09] MEDS: CEFEPIME 1GM/ 50ML 50 ML IV SCH (17:40)
[2023-09-09] MEDS: MIDODRINE HCL 10 MG TAB PO SCH (17:41)
[2023-09-10] VITALS (14 sets, daily range): PULSE 85–101; RESP 16–20; O2SAT 90–99
[2023-09-10] MEDS: ACCU-CHEK COMFORT CURVE STRIP VI SCH ×4 (00:35→18:20)
[2023-09-10] MEDS: InsuLIN REG 1unit/0.01ml Soln (100units/ml) SC SCH ×5 (00:43→23:43)
[2023-09-10] MEDS: D5W/SOD CHL 0.45% 1,000 ML IV SCH ×3 (00:49→18:21)
[2023-09-10] MEDS: CEFEPIME 1GM/ 50ML 50 ML IV SCH ×3 (01:09→18:21)
[2023-09-10] MEDS: IPRATROPIUM BROM 0.5 MG/2.5ML INH SOL NEB SCH ×6 (02:13→23:20)
[2023-09-10] MEDS: ALBUTEROL SULF 2.5 MG/0.5ML(0.5%) NEB SOLN NEB SCH ×6 (02:13→23:20)
[2023-09-10 02:25] LABS: Lactic Acid w/Reflex 3.1 mmol/L (0.4-2.0)
[2023-09-10 03:25] LABS: Hemoglobin 8.5 g/dL (12.2-16.2); Mean Corpuscular Hemoglobin 26.5 pg (28.0-32.0); Red Blood Cells 3.19 10^6/uL (4.0-5.20)
[2023-09-10 03:28] LABS: Hematocrit 28.5 % (36.0-46.0); Mean Corpuscular Hgb Conc. 29.6 g/dL (32.0-36.0); Mean Corpuscular Volume 89.6 fL (80.0-100.0)
[2023-09-10 03:40] LABS: Chloride 114 mmol/L (98-107); Potassium 3.7 mmol/L (3.5-5.1); Sodium 141 mmol/L (136-145)
[2023-09-10 03:41] LABS: Anion Gap 13 (5-15); Carbon Dioxide 14 mmol/L (20-30)
[2023-09-10 03:42] LABS: Calcium 6.9 mg/dL (8.7-10.4)
[2023-09-10 03:46] LABS: Glucose 225 mg/dL (74-106)
[2023-09-10 03:47] LABS: BUN/Creatinine Ratio 18.2 (10.0-20.0); Blood Urea Nitrogen 37 mg/dL (9-23)
[2023-09-10 04:03] LABS: Basophils % (manual) 0 (0.0-2.0); Blast Cells 0; Eosinophils % (manual) 0 (0-7); Metamyelocytes % 0; Myelocytes % 0; Promyelocytes % 0; Reactive Lymphocytes 0
[2023-09-10] MEDS: NOREPINEPHRINE 8 MG/250ML KIT 250 ML IV SCH (06:30)
[2023-09-10] MEDS: MIDODRINE HCL 10 MG TAB PO SCH ×3 (06:49→18:00)
[2023-09-10 07:02] LABS: Band Neutrophils % (manual) 9; Lymphocytes % (manual) 1 (10.0-50.0); Monocytes % (manual) 1 (0-12)
[2023-09-10 07:03] LABS: Anisocytosis Slight; Hypochromia Slight; Ovalocytes FEW
[2023-09-10 07:04] LABS: Large Platelets FEW; Platelet Estimate Decreased
[2023-09-10] MEDS: OSELTAMIVIR 30 MG CAP PO SCH (10:00)
[2023-09-10] MEDS: DexAMETHasone SOD PHOS 10MG/1ML VIAL INJ IV SCH (10:47)
[2023-09-10] MEDS: PANTOPRAZOLE 40 MG/10 ML VIAL INJ IV SCH (10:49)
[2023-09-10] MEDS: VANCOMYCIN 750mg/150ml 250 ML IV SCH (12:18)
[2023-09-10 17:52] LABS: Base Excess -10.3 mmol/L (-2.0-2.0)
[2023-09-10 19:36] LABS: INR 1.18 (0.9-1.15); Prothrombin Time 12.3 sec (9.3-11.8)
[2023-09-11] VITALS (18 sets, daily range): BP systolic 101–107; BP diastolic 48–73; PULSE 79–117; RESP 16–24; TEMP 97.8; O2SAT 79–98
[2023-09-11] MEDS: D5W/SOD CHL 0.45% 1,000 ML IV SCH ×3 (00:15→16:15)
[2023-09-11] MEDS: CEFEPIME 1GM/ 50ML 50 ML IV SCH ×3 (01:30→19:54)
[2023-09-11] MEDS: ALBUTEROL SULF 2.5 MG/0.5ML(0.5%) NEB SOLN NEB SCH ×6 (03:02→22:31)
[2023-09-11] MEDS: IPRATROPIUM BROM 0.5 MG/2.5ML INH SOL NEB SCH ×6 (03:02→22:32)
[2023-09-11] MEDS: MIDODRINE HCL 10 MG TAB PO SCH ×3 (06:00→18:00)
[2023-09-11] MEDS: InsuLIN REG 1unit/0.01ml Soln (100units/ml) SC SCH ×3 (06:00→18:00)
[2023-09-11] MEDS: NOREPINEPHRINE 8 MG/250ML KIT 250 ML IV SCH (06:12)
[2023-09-11] MEDS: ACCU-CHEK COMFORT CURVE STRIP VI SCH ×4 (06:28→19:56)
[2023-09-11] MEDS ORDERED: HEPARIN DRIP/D5W 100UNITS/ML 250 ML IV SCH (07:45)
[2023-09-11] MEDS ORDERED: HEPARIN SODIUM (PORCINE) 5000 UNITS/ML 1ML VIAL IV ONE (07:45)
[2023-09-11] MEDS: OSELTAMIVIR 30 MG CAP PO SCH ×2 (10:00→10:13)
[2023-09-11] MEDS: DexAMETHasone SOD PHOS 10MG/1ML VIAL INJ IV SCH (10:13)
[2023-09-11] MEDS: PANTOPRAZOLE 40 MG/10 ML VIAL INJ IV SCH (10:13)
[2023-09-11] MEDS: VANCOMYCIN 750mg/150ml 250 ML IV SCH (15:21)
[2023-09-11 21:51] LABS: Hematocrit 26.6 % (36.0-46.0); Hemoglobin 7.8 g/dL (12.2-16.2); Mean Corpuscular Hemoglobin 26.2 pg (28.0-32.0); Mean Corpuscular Hgb Conc. 29.5 g/dL (32.0-36.0); Red Blood Cells 2.98 10^6/uL (4.0-5.20); Red Cell Distribution Width 21.2 % (11.8-14.3); White Blood Cell 23.2 10^3/uL (4.4-10.8)
[2023-09-11 21:55] LABS: Basophils % (manual) 0 (0.0-2.0); Blast Cells 0; Eosinophils % (manual) 0 (0-7); Metamyelocytes % 0; Myelocytes % 0; Promyelocytes % 0; Reactive Lymphocytes 0
[2023-09-11 21:58] LABS: Chloride 113 mmol/L (98-107); Sodium 140 mmol/L (136-145)
[2023-09-11 21:59] LABS: Anion Gap 9 (5-15); Calcium 7.4 mg/dL (8.5-10.1); Carbon Dioxide 18 mmol/L (20-30)
[2023-09-11 22:04] LABS: Anisocytosis Slight; Band Neutrophils % (manual) 4; Glucose 156 mg/dL (74-106); INR 1.24 (0.9-1.15); Lymphocytes % (manual) 2 (10.0-50.0); Monocytes % (manual) 2 (0-12); Ovalocytes FEW; Partial Thromboplastin Time 42.9 SEC (24.5-34.5); Platelet Estimate Decreased; Prothrombin Time 12.8 sec (9.3-11.8)
[2023-09-11 22:05] LABS: Hypochromia Moderate
[2023-09-11 22:12] LABS: Blood Urea Nitrogen 25 mg/dL (9-23)
[2023-09-12] VITALS (83 sets, daily range): BP systolic 41–150; BP diastolic 23–100; PULSE 68–96; RESP 0–26; TEMP 92–97.7; O2SAT 83–100
[2023-09-12] MEDS: ACCU-CHEK COMFORT CURVE STRIP VI SCH ×3 (01:19→18:23)
[2023-09-12] MEDS: InsuLIN REG 1unit/0.01ml Soln (100units/ml) SC SCH ×4 (01:20→23:52)
[2023-09-12] MEDS: IPRATROPIUM BROM 0.5 MG/2.5ML INH SOL NEB SCH ×6 (02:23→22:15)
[2023-09-12] MEDS: ALBUTEROL SULF 2.5 MG/0.5ML(0.5%) NEB SOLN NEB SCH ×6 (02:23→22:15)
[2023-09-12] MEDS: CEFEPIME 1GM/ 50ML 50 ML IV SCH ×3 (02:37→18:02)
[2023-09-12] MEDS: D5W/SOD CHL 0.45% 1,000 ML IV SCH ×2 (02:38→18:04)
[2023-09-12 04:26] LABS: Base Excess -10.9 mmol/L (-2.0-2.0)
[2023-09-12] MEDS ORDERED: FUROSEMIDE 20 MG/2 ML VIAL IV ONE (04:45)
[2023-09-12] MEDS: MIDODRINE HCL 10 MG TAB PO SCH ×3 (06:00→18:14)
[2023-09-12] MEDS ORDERED: SODIUM CHLORIDE 0.9% 1,000 ML IV ONE (08:30)
[2023-09-12 09:17] LABS: Base Excess -10.2 mmol/L (-2.0-2.0)
[2023-09-12] MEDS: OSELTAMIVIR 30 MG CAP PO SCH (10:00)
[2023-09-12] MEDS: DexAMETHasone SOD PHOS 10MG/1ML VIAL INJ IV SCH (10:02)
[2023-09-12] MEDS: PANTOPRAZOLE 40 MG/10 ML VIAL INJ IV SCH (10:02)
[2023-09-12 11:00] LABS: Base Excess -10.8 mmol/L (-2.0-2.0)
[2023-09-12] MEDS: VANCOMYCIN 750mg/150ml 250 ML IV SCH (11:00)
[2023-09-12] MEDS ORDERED: ETOMIDATE (2MG/ML) 20ML VIAL IV ONE ×2 (12:06→13:15)
[2023-09-12] MEDS ORDERED: SUCCINYLCHOLINE CHLORIDE 20 MG/ML 10ML VIAL IV ONE (12:07)
[2023-09-12] MEDS ORDERED: MIDAZOLAM DRIP 50 mg/50mL 50 ML IV ONE (12:18)
[2023-09-12] MEDS ORDERED: fentaNYL Drip 2500mCg/250mlNS 0 ML IV ONE (12:35)
[2023-09-12] MEDS ORDERED: PROPOFOL 0 ML IV ONE (12:35)
[2023-09-12] MEDS ORDERED: ROCURONIUM 10MG/ML 10ML VIAL IV ONE ×2 (12:42→13:15)
[2023-09-12] MEDS ORDERED: NOREPINEPHRINE 8 MG/250ML KIT 250 ML IV ONE (12:45)
[2023-09-12] MEDS: NOREPINEPHRINE 8 MG/250ML KIT 250 ML IV SCH (12:52)
[2023-09-12] MEDS: MIDAZOLAM DRIP 50 mg/50mL 50 ML IV SCH ×2 (13:02→18:21)
[2023-09-12] MEDS ORDERED: VANCOMYCIN 1GM/200ML 200 ML IV ONE (13:10)
[2023-09-12] MEDS: fentaNYL Drip 2500mCg/250mlNS 250 ML IV SCH ×2 (13:15→15:00)
[2023-09-12] MEDS: VASOPRESSIN 20 UNITS in SODIUM CHL 0.9% 99 ML IV SCH (13:15)
[2023-09-12 13:48] LABS: Hemoglobin 8.2 g/dL (12.2-16.2)
[2023-09-12 13:50] LABS: Basophils # (auto) 0 10 ^3/uL (0-0.2); Basophils % (auto) 0.2 % (0.0-2.0); Eosinophils # (auto) 0 10 ^3/uL (0-0.8); Hematocrit 27.1 % (36.0-46.0); Lymphocytes # (auto) 0.3 10 ^3/uL (0.4-5.4); Lymphocytes % (auto) 1.6 % (10.0-50.0); Mean Corpuscular Hemoglobin 26.2 pg (28.0-32.0); Mean Corpuscular Hgb Conc. 30.1 g/dL (32.0-36.0); Monocytes # (auto) 0.4 10 ^3/uL (0-1.3); Monocytes % (auto) 1.7 % (0.0-12.0); Neutrophils # (auto) 19.9 10 ^3/uL (1.6-8.6); Neutrophils % (auto) 96.5 % (37.0-80.0); Nucleated Red Blood Cells % 0.3 %; Red Blood Cells 3.12 10^6/uL (4.0-5.20); White Blood Cell 20.7 10^3/uL (4.4-10.8)
[2023-09-12 14:05] LABS: Chloride 113 mmol/L (98-107); Sodium 141 mmol/L (136-145)
[2023-09-12 14:06] LABS: Anion Gap 9 (5-15); Carbon Dioxide 19 mmol/L (20-30)
[2023-09-12 14:11] LABS: BUN/Creatinine Ratio 19.7 (10.0-20.0); Glucose 110 mg/dL (74-106)
[2023-09-12 14:21] LABS: Blood Urea Nitrogen 46 mg/dL (9-23)
[2023-09-12 14:49] LABS: Red Cell Distribution Width 21.3 % (11.8-14.3)
[2023-09-12 15:14] LABS: Base Excess -10.5 mmol/L (-2.0-2.0)
[2023-09-12 16:21] LABS: Platelet Estimate Decreased
[2023-09-12 16:23] LABS: Anisocytosis Slight; Hypochromia Moderate; Ovalocytes FEW
[2023-09-12] MEDS ORDERED: SODIUM BICARBONATE 8.4 % INJ 50ML VIAL IV ONE ×2 (17:45→17:47)
[2023-09-13] VITALS (113 sets, daily range): BP systolic 34–154; BP diastolic 21–93; PULSE 60–99; RESP 0–26; TEMP 96.8–98.4; O2SAT 79–100
[2023-09-13] MEDS: ACCU-CHEK COMFORT CURVE STRIP VI SCH ×4 (00:04→18:15)
[2023-09-13] MEDS: VASOPRESSIN 20 UNITS in SODIUM CHL 0.9% 99 ML IV SCH ×3 (00:22→22:36)
[2023-09-13] MEDS: ALBUTEROL SULF 2.5 MG/0.5ML(0.5%) NEB SOLN NEB SCH ×6 (02:20→22:02)
[2023-09-13] MEDS: IPRATROPIUM BROM 0.5 MG/2.5ML INH SOL NEB SCH ×6 (02:20→22:02)
[2023-09-13 03:53] LABS: Hemoglobin 7.6 g/dL (12.2-16.2)
[2023-09-13 03:56] LABS: Hematocrit 24.3 % (36.0-46.0); Mean Corpuscular Hgb Conc. 31.3 g/dL (32.0-36.0); Mean Corpuscular Volume 86.2 fL (80.0-100.0); Red Blood Cells 2.82 10^6/uL (4.0-5.20); White Blood Cell 17.6 10^3/uL (4.4-10.8)
[2023-09-13 04:03] LABS: Red Cell Distribution Width 21.8 % (11.8-14.3)
[2023-09-13 04:05] LABS: Basophils % (manual) 0 (0.0-2.0); Blast Cells 0; Eosinophils % (manual) 0 (0-7); Metamyelocytes % 0; Myelocytes % 0; Promyelocytes % 0; Reactive Lymphocytes 0
[2023-09-13 04:15] LABS: Alanine Aminotransferase 10 U/L (7-40); Alkaline Phosphatase 124 U/L (46-116); Anion Gap 9 (5-15); Aspartate Aminotransferase 34 U/L (13-40); BUN/Creatinine Ratio 15.9 (10.0-20.0); Blood Urea Nitrogen 39 mg/dL (9-23); Calcium 6.7 mg/dL (8.7-10.4); Carbon Dioxide 20 mmol/L (20-30); Chloride 113 mmol/L (98-107); Glucose 162 mg/dL (74-106); Potassium 3.8 mmol/L (3.5-5.1); Sodium 142 mmol/L (136-145)
[2023-09-13 04:16] LABS: Bilirubin, Total 0.2 mg/dL (0.2-1.0); Total Protein 3.7 g/dL (5.7-8.2)
[2023-09-13] MEDS: D5W/SOD CHL 0.45% 1,000 ML IV SCH ×3 (04:55→23:19)
[2023-09-13] MEDS: MIDODRINE HCL 10 MG TAB PO SCH ×3 (05:57→18:15)
[2023-09-13] MEDS: InsuLIN REG 1unit/0.01ml Soln (100units/ml) SC SCH ×3 (05:57→18:29)
[2023-09-13 07:06] LABS: Anisocytosis Slight; Band Neutrophils % (manual) 7; Lymphocytes % (manual) 2 (10.0-50.0); Monocytes % (manual) 2 (0-12)
[2023-09-13 07:07] LABS: Platelet Estimate Decreased
[2023-09-13 07:08] LABS: Hypochromia Slight; Target Cell FEW
[2023-09-13 07:10] LABS: Large Platelets FEW
[2023-09-13] MEDS: NOREPINEPHRINE 8 MG/250ML KIT 250 ML IV SCH ×2 (09:07→21:52)
[2023-09-13] MEDS: MIDAZOLAM DRIP 50 mg/50mL 50 ML IV SCH ×2 (09:35→17:39)
[2023-09-13] MEDS: CEFEPIME 1GM/ 50ML 50 ML IV SCH (10:11)
[2023-09-13] MEDS: OSELTAMIVIR 30 MG CAP PO SCH (10:11)
[2023-09-13] MEDS: PANTOPRAZOLE 40 MG/10 ML VIAL INJ IV SCH (10:11)
[2023-09-13] MEDS ORDERED: CALCIUM GLUC 1,000mg/50ml-NS 50 ML IV ONE (10:15)
[2023-09-13] MEDS: DexAMETHasone SOD PHOS 10MG/1ML VIAL INJ IV SCH (10:21)
[2023-09-13] MEDS: fentaNYL Drip 2500mCg/250mlNS 250 ML IV SCH (21:55)
[2023-09-14] VITALS (134 sets, daily range): BP systolic 50–169; BP diastolic 36–84; PULSE 60–98; RESP 20–26; TEMP 96.8–99.1; O2SAT 77–100
[2023-09-14] MEDS: ACCU-CHEK COMFORT CURVE STRIP VI SCH ×4 (00:23→18:14)
[2023-09-14] MEDS: IPRATROPIUM BROM 0.5 MG/2.5ML INH SOL NEB SCH ×6 (02:14→22:18)
[2023-09-14] MEDS: ALBUTEROL SULF 2.5 MG/0.5ML(0.5%) NEB SOLN NEB SCH ×6 (02:14→22:18)
[2023-09-14 04:14] LABS: Eosinophils # (auto) 0 10 ^3/uL (0-0.8); Eosinophils % (auto) 0.1 % (0.0-7.0); Neutrophils # (auto) 13.9 10 ^3/uL (1.6-8.6); Neutrophils % (auto) 91.3 % (37.0-80.0); White Blood Cell 15.2 10^3/uL (4.4-10.8)
[2023-09-14 04:32] LABS: Albumin 1.9 g/dL (3.2-4.8); Alkaline Phosphatase 116 U/L (46-116); Anion Gap 12 (5-15); Aspartate Aminotransferase 28 U/L (13-40); BUN/Creatinine Ratio 14.5 (10.0-20.0); Bilirubin, Total < 0.2 mg/dL (0.2-1.0); Blood Urea Nitrogen 37 mg/dL (9-23); Calcium 7.2 mg/dL (8.5-10.1); Carbon Dioxide 17 mmol/L (20-30); Chloride 113 mmol/L (98-107); Glucose 129 mg/dL (74-106); Potassium 3.9 mmol/L (3.5-5.1); Sodium 142 mmol/L (136-145); Total Protein 3.6 g/dL (5.7-8.2)
[2023-09-14 04:34] LABS: Basophils # (auto) 0 10 ^3/uL (0-0.2); Basophils % (auto) 0.1 % (0.0-2.0); Hematocrit 23.2 % (36.0-46.0); Hemoglobin 7.3 g/dL (12.2-16.2); Lymphocytes # (auto) 0.3 10 ^3/uL (0.4-5.4); Lymphocytes % (auto) 2.1 % (10.0-50.0); Mean Corpuscular Hemoglobin 26.4 pg (28.0-32.0); Mean Corpuscular Hgb Conc. 31.7 g/dL (32.0-36.0); Mean Corpuscular Volume 83.5 fL (80.0-100.0); Monocytes % (auto) 6.4 % (0.0-12.0); Nucleated Red Blood Cells % 0.3 %; Red Blood Cells 2.78 10^6/uL (4.0-5.20)
[2023-09-14 04:36] LABS: Red Cell Distribution Width 21.5 % (11.8-14.3)
[2023-09-14 04:43] LABS: Alanine Aminotransferase < 9 U/L (7-40)
[2023-09-14] MEDS: MIDODRINE HCL 10 MG TAB PO SCH ×3 (05:32→17:37)
[2023-09-14] MEDS: InsuLIN REG 1unit/0.01ml Soln (100units/ml) SC SCH ×4 (05:38→18:16)
[2023-09-14 06:56] LABS: Anisocytosis Moderate; Hypochromia Slight; Platelet Estimate Markedly Decreased
[2023-09-14 06:56] LABS: Base Excess -11.8 mmol/L (-2.0-2.0)
[2023-09-14 06:57] LABS: Large Platelets FEW; Ovalocytes FEW; Target Cell FEW
[2023-09-14] MEDS: MIDAZOLAM DRIP 50 mg/50mL 50 ML IV SCH ×2 (07:25→17:43)
[2023-09-14] MEDS: VASOPRESSIN 20 UNITS in SODIUM CHL 0.9% 99 ML IV SCH ×2 (09:43→20:50)
[2023-09-14] MEDS: PANTOPRAZOLE 40 MG/10 ML VIAL INJ IV SCH (10:06)
[2023-09-14] MEDS: DexAMETHasone SOD PHOS 10MG/1ML VIAL INJ IV SCH (10:06)
[2023-09-14] MEDS: CEFEPIME 1GM/ 50ML 50 ML IV SCH (10:07)
[2023-09-14] MEDS: D5W/SOD CHL 0.45% 1,000 ML IV SCH (13:18)
[2023-09-14] MEDS ORDERED: Jevity 1.2 Cal/Fiber 1 Liter GT SCH (14:15)
[2023-09-14] MEDS: NOREPINEPHRINE 8 MG/250ML KIT 250 ML IV SCH (14:18)
[2023-09-14] MEDS ORDERED: ALBUMIN 25% 100 ML IV ONE (14:30)
[2023-09-15] VITALS (136 sets, daily range): BP systolic 90–148; BP diastolic 47–85; PULSE 59–109; RESP 22–32; TEMP 97.2–98.1; O2SAT 89–100
[2023-09-15] MEDS: ACCU-CHEK COMFORT CURVE STRIP VI SCH ×4 (00:14→18:00)
[2023-09-15] MEDS: InsuLIN REG 1unit/0.01ml Soln (100units/ml) SC SCH ×4 (00:14→18:21)
[2023-09-15] MEDS ORDERED: ALBUMIN 25% 100 ML IV ONE ×3 (02:30→18:00)
[2023-09-15] MEDS: ALBUTEROL SULF 2.5 MG/0.5ML(0.5%) NEB SOLN NEB SCH ×6 (02:35→22:15)
[2023-09-15] MEDS: IPRATROPIUM BROM 0.5 MG/2.5ML INH SOL NEB SCH ×6 (02:35→22:15)
[2023-09-15 03:57] LABS: Hematocrit 20.8 % (36.0-46.0); Mean Corpuscular Hgb Conc. 30.4 g/dL (32.0-36.0); Mean Corpuscular Volume 85.5 fL (80.0-100.0); Red Blood Cells 2.43 10^6/uL (4.0-5.20); White Blood Cell 15.3 10^3/uL (4.4-10.8)
[2023-09-15 04:02] LABS: Calcium 7.6 mg/dL (8.7-10.4); Chloride 113 mmol/L (98-107); Potassium 3.9 mmol/L (3.5-5.1); Sodium 142 mmol/L (136-145)
[2023-09-15 04:03] LABS: Anion Gap 12 (5-15); Carbon Dioxide 17 mmol/L (20-30)
[2023-09-15 04:08] LABS: BUN/Creatinine Ratio 16.2 (10.0-20.0); Blood Urea Nitrogen 41 mg/dL (9-23); Glucose 138 mg/dL (74-106); Hemoglobin 6.3 g/dL (12.2-16.2)
[2023-09-15 04:09] LABS: Basophils % (manual) 0 (0.0-2.0); Blast Cells 0; Eosinophils % (manual) 0 (0-7); Metamyelocytes % 0; Myelocytes % 0; Promyelocytes % 0; Reactive Lymphocytes 0
[2023-09-15 04:22] LABS: Band Neutrophils % (manual) 2; Lymphocytes % (manual) 2 (10.0-50.0); Monocytes % (manual) 1 (0-12); Platelet Estimate Markedly Decreased
[2023-09-15 04:24] LABS: Anisocytosis Moderate; Hypochromia Moderate; Ovalocytes FEW; Target Cell FEW
[2023-09-15 04:53] LABS: Basophils # (auto) 0 10 ^3/uL (0-0.2); Basophils % (auto) 0.2 % (0.0-2.0); Eosinophils # (auto) 0 10 ^3/uL (0-0.8); Lymphocytes # (auto) 0.1 10 ^3/uL (0.4-5.4); Monocytes # (auto) 0.3 10 ^3/uL (0-1.3); Monocytes % (auto) 1.9 % (0.0-12.0); Nucleated Red Blood Cells % 0.1 %
[2023-09-15 04:54] LABS: Hematocrit 20.7 % (36.0-46.0); Lymphocytes % (auto) 0.7 % (10.0-50.0); Mean Corpuscular Hemoglobin 25.5 pg (28.0-32.0); Mean Corpuscular Hgb Conc. 29.8 g/dL (32.0-36.0); Mean Corpuscular Volume 85.5 fL (80.0-100.0); Neutrophils # (auto) 15.1 10 ^3/uL (1.6-8.6); Neutrophils % (auto) 97.2 % (37.0-80.0); Red Blood Cells 2.42 10^6/uL (4.0-5.20); White Blood Cell 15.5 10^3/uL (4.4-10.8)
[2023-09-15 04:55] LABS: Red Cell Distribution Width 22.2 % (11.8-14.3)
[2023-09-15 04:56] LABS: Hemoglobin 6.2 g/dL (12.2-16.2)
[2023-09-15 05:05] LABS: Platelet Estimate Decreased
[2023-09-15] MEDS: MIDODRINE HCL 10 MG TAB PO SCH ×3 (05:46→18:00)
[2023-09-15] MEDS: NOREPINEPHRINE 8 MG/250ML KIT 250 ML IV SCH (07:09)
[2023-09-15] MEDS: VASOPRESSIN 20 UNITS in SODIUM CHL 0.9% 99 ML IV SCH ×2 (07:45→19:04)
[2023-09-15 07:55] LABS: Base Excess -11.5 mmol/L (-2.0-2.0)
[2023-09-15] MEDS: PANTOPRAZOLE 40 MG/10 ML VIAL INJ IV SCH (09:46)
[2023-09-15] MEDS: CEFEPIME 1GM/ 50ML 50 ML IV SCH (09:47)
[2023-09-15] MEDS: DexAMETHasone SOD PHOS 10MG/1ML VIAL INJ IV SCH (09:47)
[2023-09-15] MEDS ORDERED: SODIUM BICARBONATE 8.4 % INJ 50ML VIAL IV ONE (10:00)
[2023-09-15] MEDS: fentaNYL Drip 2500mCg/250mlNS 250 ML IV SCH ×2 (13:15→18:24)
[2023-09-15] MEDS: D5W/SOD CHL 0.45% 1,000 ML IV SCH ×2 (15:23→23:35)
[2023-09-16] VITALS (116 sets, daily range): BP systolic 98–140; BP diastolic 45–74; PULSE 58–91; RESP 23–25; TEMP 97.7–99; O2SAT 95–100
[2023-09-16] MEDS: ACCU-CHEK COMFORT CURVE STRIP VI SCH ×5 (00:21→23:37)
[2023-09-16] MEDS: InsuLIN REG 1unit/0.01ml Soln (100units/ml) SC SCH ×5 (00:21→23:37)
[2023-09-16] MEDS: IPRATROPIUM BROM 0.5 MG/2.5ML INH SOL NEB SCH ×6 (02:10→22:31)
[2023-09-16] MEDS: ALBUTEROL SULF 2.5 MG/0.5ML(0.5%) NEB SOLN NEB SCH ×6 (02:10→22:31)
[2023-09-16 03:44] LABS: Hemoglobin 7.8 g/dL (12.2-16.2)
[2023-09-16 03:48] LABS: Hematocrit 24.4 % (36.0-46.0); Mean Corpuscular Hemoglobin 27.1 pg (28.0-32.0); Mean Corpuscular Hgb Conc. 32.1 g/dL (32.0-36.0); Mean Corpuscular Volume 84.5 fL (80.0-100.0); Red Blood Cells 2.89 10^6/uL (4.0-5.20); Red Cell Distribution Width 19.2 % (11.8-14.3)
[2023-09-16 03:52] LABS: Anion Gap 13 (5-15); Carbon Dioxide 17 mmol/L (20-30); Chloride 114 mmol/L (98-107); Potassium 3.7 mmol/L (3.5-5.1); Sodium 144 mmol/L (136-145)
[2023-09-16 03:54] LABS: Calcium 7.6 mg/dL (8.7-10.4)
[2023-09-16 03:58] LABS: BUN/Creatinine Ratio 17.2 (10.0-20.0); Blood Urea Nitrogen 42 mg/dL (9-23); Glucose 145 mg/dL (74-106)
[2023-09-16 04:26] LABS: Basophils % (manual) 0 (0.0-2.0); Blast Cells 0; Eosinophils % (manual) 0 (0-7); Lymphocytes % (manual) 0 (10.0-50.0); Metamyelocytes % 0; Monocytes % (manual) 0 (0-12); Myelocytes % 0; Promyelocytes % 0; Reactive Lymphocytes 0
[2023-09-16] MEDS ORDERED: ALBUMIN 25% 100 ML IV ONE (06:00)
[2023-09-16] MEDS: VASOPRESSIN 20 UNITS in SODIUM CHL 0.9% 99 ML IV SCH ×2 (06:11→17:18)
[2023-09-16] MEDS: MIDODRINE HCL 10 MG TAB PO SCH ×3 (06:37→18:22)
[2023-09-16 07:05] LABS: Anisocytosis Moderate; Band Neutrophils % (manual) 6; Macrocytosis Slight; Platelet Estimate Markedly Decreased; Polychromasia Slight
[2023-09-16 07:06] LABS: Target Cell FEW
[2023-09-16] MEDS: CEFEPIME 1GM/ 50ML 50 ML IV SCH (09:43)
[2023-09-16] MEDS: PANTOPRAZOLE 40 MG/10 ML VIAL INJ IV SCH (09:44)
[2023-09-16] MEDS: DexAMETHasone SOD PHOS 10MG/1ML VIAL INJ IV SCH (09:44)
[2023-09-16] MEDS ORDERED: FUROSEMIDE 40 MG/4 ML VIAL IV SCH (10:00)
[2023-09-16] MEDS: fentaNYL Drip 2500mCg/250mlNS 250 ML IV SCH (10:06)
[2023-09-16] MEDS: NOREPINEPHRINE 8 MG/250ML KIT 250 ML IV SCH (12:53)
[2023-09-16] MEDS: MIDAZOLAM DRIP 50 mg/50mL 50 ML IV SCH (12:53)
[2023-09-16] MEDS: D5W/SOD CHL 0.45% 1,000 ML IV SCH ×2 (12:55→23:55)
[2023-09-16 16:43] LABS: Basophils # (auto) 0 10 ^3/uL (0-0.2); Eosinophils # (auto) 0 10 ^3/uL (0-0.8); Hemoglobin 7.6 g/dL (12.2-16.2); Lymphocytes # (auto) 0.1 10 ^3/uL (0.4-5.4); Monocytes # (auto) 0.1 10 ^3/uL (0-1.3); Nucleated Red Blood Cells % 0.1 %
[2023-09-16 16:47] LABS: Basophils % (auto) 0.1 % (0.0-2.0); Hematocrit 23.8 % (36.0-46.0); Lymphocytes % (auto) 0.4 % (10.0-50.0); Mean Corpuscular Hemoglobin 26.6 pg (28.0-32.0); Mean Corpuscular Hgb Conc. 31.9 g/dL (32.0-36.0); Mean Corpuscular Volume 83.5 fL (80.0-100.0); Monocytes % (auto) 0.7 % (0.0-12.0); Neutrophils # (auto) 15.5 10 ^3/uL (1.6-8.6); Neutrophils % (auto) 98.8 % (37.0-80.0); Red Blood Cells 2.85 10^6/uL (4.0-5.20); Red Cell Distribution Width 19.5 % (11.8-14.3); White Blood Cell 15.7 10^3/uL (4.4-10.8)
[2023-09-16 17:12] LABS: % Iron Saturation 26.6 % (15-50)
[2023-09-16 17:13] LABS: Alkaline Phosphatase 89 U/L (46-116); Anion Gap 13 (5-15); Aspartate Aminotransferase 18 U/L (13-40); BUN/Creatinine Ratio 16.3 (10.0-20.0); Blood Urea Nitrogen 40 mg/dL (9-23); Carbon Dioxide 18 mmol/L (20-30); Chloride 114 mmol/L (98-107); Glucose 111 mg/dL (74-106); Potassium 3.7 mmol/L (3.5-5.1); Sodium 145 mmol/L (136-145)
[2023-09-16 17:14] LABS: Bilirubin, Total 0.4 mg/dL (0.2-1.0); Total Protein 4.5 g/dL (5.7-8.2)
[2023-09-16 17:16] LABS: Ferritin > 1650.0 ng/mL (10-291); Thyroid Stimulating Hormone 0.82 uIU/mL (0.358-3.74)
[2023-09-16 17:24] LABS: CRP High Sensitivity 1.04 mg/dL (<1.0)
[2023-09-16 18:20] LABS: Alanine Aminotransferase < 9 U/L (7-40)
[2023-09-16 18:28] LABS: Erythrocyte Sedimentation Rate 2 mm/hr (0-20)
[2023-09-17] VITALS (116 sets, daily range): BP systolic 89–142; BP diastolic 45–83; PULSE 50–107; RESP 12–27; TEMP 97–99.1; O2SAT 96–100
[2023-09-17] MEDS: IPRATROPIUM BROM 0.5 MG/2.5ML INH SOL NEB SCH ×6 (02:10→22:05)
[2023-09-17] MEDS: ALBUTEROL SULF 2.5 MG/0.5ML(0.5%) NEB SOLN NEB SCH ×6 (02:10→22:05)
[2023-09-17] MEDS: VASOPRESSIN 20 UNITS in SODIUM CHL 0.9% 99 ML IV SCH ×4 (04:25→23:37)
[2023-09-17 04:29] LABS: Hemoglobin 7.3 g/dL (12.2-16.2); White Blood Cell 13.5 10^3/uL (4.4-10.8)
[2023-09-17 04:32] LABS: Hematocrit 22.9 % (36.0-46.0); Mean Corpuscular Hemoglobin 26.6 pg (28.0-32.0); Red Blood Cells 2.75 10^6/uL (4.0-5.20); Red Cell Distribution Width 19.1 % (11.8-14.3)
[2023-09-17 04:44] LABS: Basophils % (manual) 0 (0.0-2.0); Blast Cells 0; Eosinophils % (manual) 0 (0-7); Metamyelocytes % 0; Myelocytes % 0; Promyelocytes % 0; Reactive Lymphocytes 0
[2023-09-17 04:47] LABS: Chloride 115 mmol/L (98-107); Potassium 3.5 mmol/L (3.5-5.1); Sodium 146 mmol/L (136-145)
[2023-09-17 04:48] LABS: Anion Gap 11 (5-15); Carbon Dioxide 20 mmol/L (20-30)
[2023-09-17 04:53] LABS: Glucose 130 mg/dL (74-106)
[2023-09-17 04:54] LABS: BUN/Creatinine Ratio 17.2 (10.0-20.0); Blood Urea Nitrogen 42 mg/dL (9-23)
[2023-09-17 05:41] LABS: Band Neutrophils % (manual) 2; Lymphocytes % (manual) 1 (10.0-50.0); Monocytes % (manual) 1 (0-12)
[2023-09-17 05:42] LABS: Anisocytosis Slight; Giant Platelets Few; Hypochromia Slight; Ovalocytes FEW; Stomatocytes Few; Target Cell FEW
[2023-09-17 05:43] LABS: Platelet Estimate Decreased
[2023-09-17] MEDS: InsuLIN REG 1unit/0.01ml Soln (100units/ml) SC SCH ×3 (06:00→18:34)
[2023-09-17] MEDS: MIDODRINE HCL 10 MG TAB PO SCH ×3 (06:01→18:00)
[2023-09-17] MEDS: fentaNYL Drip 2500mCg/250mlNS 250 ML IV SCH (06:01)
[2023-09-17] MEDS: ACCU-CHEK COMFORT CURVE STRIP VI SCH ×3 (06:01→18:29)
[2023-09-17 08:12] LABS: Base Excess -8.7 mmol/L (-2.0-2.0)
[2023-09-17] MEDS ORDERED: VANCOMYCIN 500 MG in D5W 5% 100 ML IV ONE (10:00)
[2023-09-17] MEDS: PANTOPRAZOLE 40 MG/10 ML VIAL INJ IV SCH (10:11)
[2023-09-17] MEDS: DexAMETHasone SOD PHOS 10MG/1ML VIAL INJ IV SCH (10:12)
[2023-09-17 11:16] LABS: Folate (Folic Acid) 2.39 ng/mL (>5.38)
[2023-09-17 11:17] LABS: Free T4 (Free Thyroxine) 0.46 ng/dL (0.89-1.76)
[2023-09-17] MEDS: CEFEPIME 1GM/ 50ML 50 ML IV SCH ×2 (11:51→21:29)
[2023-09-17] MEDS: NOREPINEPHRINE 8 MG/250ML KIT 250 ML IV SCH (12:21)
[2023-09-17] MEDS: MIDAZOLAM DRIP 50 mg/50mL 50 ML IV SCH (12:21)
[2023-09-17 13:44] LABS: Creatinine, Urine 54.47 mg/dL (30.0-125.0)
[2023-09-17 13:47] LABS: Protein, Urine 232.2 mg/dL (0.0-11.9); Urine Protein/Creatinine Ratio 4.26
[2023-09-17] MEDS: ALBUMIN 25% 100 ML IV SCH ×2 (14:14→21:28)
[2023-09-17] MEDS: DOPamine 1600MCG/ML D5W 250 ML IV SCH (14:14)
[2023-09-17] MEDS: SODIUM BICARBONATE 50ML VIAL 75 ML in D5W 5% 1,000 ML IV SCH (14:15)
[2023-09-17] MEDS: BUMETANIDE INJECTION 12.5 MG in GIVE UN-DILUTED 0 ML IV SCH ×2 (14:58→21:29)
[2023-09-17] MEDS: D5W/SOD CHL 0.45% 1,000 ML IV SCH (15:35)
[2023-09-18] VITALS (143 sets, daily range): BP systolic 98–154; BP diastolic 49–95; PULSE 65–140; RESP 23–27; TEMP 97–99; O2SAT 95–100
[2023-09-18] MEDS: IPRATROPIUM BROM 0.5 MG/2.5ML INH SOL NEB SCH ×6 (02:08→22:04)
[2023-09-18] MEDS: ALBUTEROL SULF 2.5 MG/0.5ML(0.5%) NEB SOLN NEB SCH ×6 (02:08→22:04)
[2023-09-18] MEDS: SODIUM BICARBONATE 50ML VIAL 75 ML in D5W 5% 1,000 ML IV SCH ×3 (03:48→13:39)
[2023-09-18 04:05] LABS: Hemoglobin 7.8 g/dL (12.2-16.2)
[2023-09-18 04:13] LABS: Hematocrit 24.8 % (36.0-46.0); Mean Corpuscular Hemoglobin 26.6 pg (28.0-32.0); Mean Corpuscular Hgb Conc. 31.5 g/dL (32.0-36.0); Mean Corpuscular Volume 84.6 fL (80.0-100.0); Red Blood Cells 2.94 10^6/uL (4.0-5.20); Red Cell Distribution Width 18.6 % (11.8-14.3); White Blood Cell 15.8 10^3/uL (4.4-10.8)
[2023-09-18 04:15] LABS: Basophils % (manual) 0 (0.0-2.0); Blast Cells 0; Eosinophils % (manual) 0 (0-7); Metamyelocytes % 0; Myelocytes % 0; Promyelocytes % 0; Reactive Lymphocytes 0
[2023-09-18 04:23] LABS: Albumin 3.6 g/dL (3.2-4.8); Alkaline Phosphatase 87 U/L (46-116); Anion Gap 11 (5-15); Aspartate Aminotransferase 26 U/L (13-40); BUN/Creatinine Ratio 17.7 (10.0-20.0); Bilirubin, Total 0.5 mg/dL (0.2-1.0); Blood Urea Nitrogen 42 mg/dL (9-23); Calcium 8.6 mg/dL (8.5-10.1); Carbon Dioxide 23 mmol/L (20-30); Chloride 112 mmol/L (98-107); Glucose 109 mg/dL (74-106); Potassium 3.4 mmol/L (3.5-5.1); Sodium 146 mmol/L (136-145); Total Protein 5.1 g/dL (5.7-8.2)
[2023-09-18 04:42] LABS: Alanine Aminotransferase 10 U/L (7-40)
[2023-09-18] MEDS: ALBUMIN 25% 100 ML IV SCH (05:11)
[2023-09-18] MEDS: ACCU-CHEK COMFORT CURVE STRIP VI SCH ×4 (05:12→17:29)
[2023-09-18] MEDS: MIDODRINE HCL 10 MG TAB PO SCH ×3 (05:17→17:27)
[2023-09-18] MEDS: InsuLIN REG 1unit/0.01ml Soln (100units/ml) SC SCH ×4 (05:17→17:32)
[2023-09-18 05:22] LABS: Band Neutrophils % (manual) 2; Lymphocytes % (manual) 1 (10.0-50.0); Monocytes % (manual) 2 (0-12)
[2023-09-18 05:23] LABS: Anisocytosis Slight; Giant Platelets Few; Hypochromia Slight; Large Platelets FEW; Ovalocytes FEW; Platelet Estimate Decreased; Target Cell FEW
[2023-09-18 05:24] LABS: Stomatocytes Few
[2023-09-18 07:41] LABS: Base Excess -3.4 mmol/L (-2.0-2.0)
[2023-09-18 08:06] LABS: Haptoglobin 158 mg/dL (33-346); Rheumatoid Arthritis Factor <10.0 IU/mL (<14.0)
[2023-09-18] MEDS: DexAMETHasone SOD PHOS 10MG/1ML VIAL INJ IV SCH (10:00)
[2023-09-18] MEDS: PANTOPRAZOLE 40 MG/10 ML VIAL INJ IV SCH (10:00)
[2023-09-18] MEDS: CEFEPIME 1GM/ 50ML 50 ML IV SCH ×2 (10:02→22:17)
[2023-09-18] MEDS: VASOPRESSIN 20 UNITS in SODIUM CHL 0.9% 99 ML IV SCH ×2 (10:03→21:51)
[2023-09-18] MEDS: fentaNYL Drip 2500mCg/250mlNS 250 ML IV SCH (10:12)
[2023-09-18] MEDS: MIDAZOLAM DRIP 50 mg/50mL 50 ML IV SCH (10:12)
[2023-09-18] MEDS: DOPamine 1600MCG/ML D5W 250 ML IV SCH ×2 (12:30→20:48)
[2023-09-18] MEDS: NOREPINEPHRINE 8 MG/250ML KIT 250 ML IV SCH (13:15)
[2023-09-18 13:47] LABS: Rapid Influenza A Positive (Negative); Rapid Influenza B Negative (Negative)
[2023-09-18] MEDS ORDERED: CLINIMIX PER PHARMACY 0 ML IV SCH ×2 (14:00→16:15)
[2023-09-18] MEDS: BUMETANIDE INJECTION 12.5 MG in GIVE UN-DILUTED 0 ML IV SCH (14:02)
[2023-09-18] MEDS: METOCLOPRAMIDE HCL 5MG/ml INJ 2ml VIAL IV SCH ×2 (14:42→22:18)
[2023-09-18] MEDS ORDERED: DEXTROSE (50%) 50ML SYRG IV SCH (14:45)
[2023-09-18] MEDS ORDERED: POTASSIUM EFFERVESENT TAB 25 MEQ GT ONE (15:00)
[2023-09-18 15:16] LABS: Magnesium 1.9 mg/dL (1.6-2.6)
[2023-09-18 15:17] LABS: Phosphorus 4.8 mg/dL (2.4-5.1)
[2023-09-18] MEDS: AMINO ACID INFUSION IN D10W 1,000 ML IV SCH (20:50)
[2023-09-19] VITALS (114 sets, daily range): BP systolic 93–155; BP diastolic 59–91; PULSE 63–118; RESP 20–26; TEMP 91.8–98.4; O2SAT 91–100
[2023-09-19] MEDS: ACCU-CHEK COMFORT CURVE STRIP VI SCH ×4 (00:28→17:37)
[2023-09-19] MEDS: SODIUM BICARBONATE 50ML VIAL 75 ML in D5W 5% 1,000 ML IV SCH ×2 (00:29→10:28)
[2023-09-19] MEDS: InsuLIN REG 1unit/0.01ml Soln (100units/ml) SC SCH ×4 (00:40→17:39)
[2023-09-19] MEDS: ALBUTEROL SULF 2.5 MG/0.5ML(0.5%) NEB SOLN NEB SCH ×6 (02:23→22:06)
[2023-09-19] MEDS: IPRATROPIUM BROM 0.5 MG/2.5ML INH SOL NEB SCH ×6 (02:23→22:06)
[2023-09-19 02:52] LABS: Hemoglobin 7.9 g/dL (12.2-16.2)
[2023-09-19 02:56] LABS: Hematocrit 25.1 % (36.0-46.0); Mean Corpuscular Hemoglobin 26.5 pg (28.0-32.0); Mean Corpuscular Hgb Conc. 31.7 g/dL (32.0-36.0); Mean Corpuscular Volume 83.5 fL (80.0-100.0); Red Cell Distribution Width 18.8 % (11.8-14.3); White Blood Cell 18.4 10^3/uL (4.4-10.8)
[2023-09-19 03:13] LABS: Alkaline Phosphatase 93 U/L (46-116); Anion Gap 12 (5-15); Band Neutrophils % (manual) 0; Basophils % (manual) 0 (0.0-2.0); Blast Cells 0; Blood Urea Nitrogen 38 mg/dL (9-23); Calcium 8.2 mg/dL (8.7-10.4); Carbon Dioxide 26 mmol/L (20-30); Chloride 106 mmol/L (98-107); Eosinophils % (manual) 0 (0-7); Glucose 179 mg/dL (74-106); Magnesium 1.8 mg/dL (1.6-2.6); Metamyelocytes % 0; Myelocytes % 0; Potassium 3.4 mmol/L (3.5-5.1); Promyelocytes % 0; Reactive Lymphocytes 0; Sodium 144 mmol/L (136-145)
[2023-09-19 03:14] LABS: Albumin 3.4 g/dL (3.2-4.8); Aspartate Aminotransferase 28 U/L (13-40); Phosphorus 3.9 mg/dL (2.4-5.1)
[2023-09-19 03:15] LABS: Bilirubin, Total 0.5 mg/dL (0.2-1.0); Total Protein 4.9 g/dL (5.7-8.2)
[2023-09-19 03:16] LABS: Alanine Aminotransferase 9 U/L (7-40)
[2023-09-19] MEDS ORDERED: POTASSIUM EFFERVESENT TAB 25 MEQ GT ONE (03:45)
[2023-09-19 03:52] LABS: Lymphocytes % (manual) 1 (10.0-50.0); Monocytes % (manual) 1 (0-12)
[2023-09-19 03:55] LABS: Platelet Estimate Decreased
[2023-09-19 03:56] LABS: Anisocytosis Slight; Giant Platelets Few; Large Platelets FEW; Ovalocytes FEW; Target Cell FEW
[2023-09-19] MEDS: METOCLOPRAMIDE HCL 5MG/ml INJ 2ml VIAL IV SCH ×3 (05:56→22:36)
[2023-09-19] MEDS: MIDODRINE HCL 10 MG TAB PO SCH ×3 (06:00→17:09)
[2023-09-19 07:46] LABS: Base Excess -0.4 mmol/L (-2.0-2.0)
[2023-09-19] MEDS: DexAMETHasone SOD PHOS 10MG/1ML VIAL INJ IV SCH (10:29)
[2023-09-19] MEDS: MIDAZOLAM DRIP 50 mg/50mL 50 ML IV SCH (10:29)
[2023-09-19] MEDS: VANCOMYCIN 500 MG in D5W 5% 100 ML IV SCH (10:29)
[2023-09-19] MEDS: VASOPRESSIN 20 UNITS in SODIUM CHL 0.9% 99 ML IV SCH ×2 (10:29→20:05)
[2023-09-19] MEDS: PANTOPRAZOLE 40 MG/10 ML VIAL INJ IV SCH (10:29)
[2023-09-19] MEDS: CEFEPIME 1GM/ 50ML 50 ML IV SCH ×2 (11:50→22:36)
[2023-09-19] MEDS: fentaNYL Drip 2500mCg/250mlNS 250 ML IV SCH (12:56)
[2023-09-19] MEDS: NOREPINEPHRINE 8 MG/250ML KIT 250 ML IV SCH (12:57)
[2023-09-19 13:06] LABS: Erythropoietin 10.1 mIU/mL (2.6-18.5)
[2023-09-19] MEDS: SOD CHL 0.45% 1,000 ML IV SCH (13:14)
[2023-09-19] MEDS: AMINO ACID INFUSION IN D10W 1,000 ML IV SCH (20:30)
[2023-09-20] VITALS (109 sets, daily range): BP systolic 80–147; BP diastolic 51–89; PULSE 73–135; RESP 16–31; TEMP 96.6–98.4; O2SAT 90–100
[2023-09-20] MEDS: ALBUTEROL SULF 2.5 MG/0.5ML(0.5%) NEB SOLN NEB SCH ×6 (02:13→22:29)
[2023-09-20] MEDS: IPRATROPIUM BROM 0.5 MG/2.5ML INH SOL NEB SCH ×6 (02:14→22:29)
[2023-09-20] MEDS: SOD CHL 0.45% 1,000 ML IV SCH ×3 (03:43→18:45)
[2023-09-20] MEDS: fentaNYL Drip 2500mCg/250mlNS 250 ML IV SCH (03:44)
[2023-09-20] MEDS: MIDAZOLAM DRIP 50 mg/50mL 50 ML IV SCH (03:44)
[2023-09-20] MEDS: DOPamine 1600MCG/ML D5W 250 ML IV SCH (03:45)
[2023-09-20 04:18] LABS: Red Cell Distribution Width 18.2 % (11.8-14.3); White Blood Cell 19.1 10^3/uL (4.4-10.8)
[2023-09-20 04:21] LABS: Hematocrit 25.2 % (36.0-46.0); Mean Corpuscular Hemoglobin 26.3 pg (28.0-32.0); Mean Corpuscular Hgb Conc. 31.7 g/dL (32.0-36.0); Mean Corpuscular Volume 83.1 fL (80.0-100.0); Red Blood Cells 3.03 10^6/uL (4.0-5.20)
[2023-09-20 04:28] LABS: Alanine Aminotransferase 13 U/L (7-40); Alkaline Phosphatase 91 U/L (46-116); Anion Gap 9 (5-15); Aspartate Aminotransferase 32 U/L (13-40); BUN/Creatinine Ratio 26.1 (10.0-20.0); Blood Urea Nitrogen 46 mg/dL (9-23); Calcium 7.8 mg/dL (8.7-10.4); Carbon Dioxide 29 mmol/L (20-30); Chloride 103 mmol/L (98-107); Glucose 125 mg/dL (74-106); Magnesium 1.5 mg/dL (1.6-2.6); Potassium 3.7 mmol/L (3.5-5.1); Sodium 141 mmol/L (136-145)
[2023-09-20 04:29] LABS: Bilirubin, Total 0.4 mg/dL (0.2-1.0); Phosphorus 3.5 mg/dL (2.4-5.1); Total Protein 4.5 g/dL (5.7-8.2)
[2023-09-20 04:36] LABS: Basophils % (manual) 0 (0.0-2.0); Blast Cells 0; Eosinophils % (manual) 0 (0-7); Lymphocytes % (manual) 0 (10.0-50.0); Metamyelocytes % 0; Myelocytes % 0; Promyelocytes % 0; Reactive Lymphocytes 0
[2023-09-20] MEDS: ACCU-CHEK COMFORT CURVE STRIP VI SCH ×4 (05:34→17:49)
[2023-09-20] MEDS: METOCLOPRAMIDE HCL 5MG/ml INJ 2ml VIAL IV SCH ×3 (05:34→21:27)
[2023-09-20] MEDS: MIDODRINE HCL 10 MG TAB PO SCH ×3 (05:34→17:43)
[2023-09-20] MEDS: InsuLIN REG 1unit/0.01ml Soln (100units/ml) SC SCH ×4 (05:47→17:49)
[2023-09-20 06:45] LABS: Anisocytosis Slight; Band Neutrophils % (manual) 4; Monocytes % (manual) 1 (0-12); Ovalocytes FEW; Platelet Estimate Decreased
[2023-09-20 06:46] LABS: Large Platelets FEW
[2023-09-20 06:47] LABS: Giant Platelets Few
[2023-09-20] MEDS: VASOPRESSIN 20 UNITS in SODIUM CHL 0.9% 99 ML IV SCH ×2 (07:12→18:19)
[2023-09-20 09:01] LABS: Base Excess 4.1 mmol/L (-2.0-2.0)
[2023-09-20] MEDS: PANTOPRAZOLE 40 MG/10 ML VIAL INJ IV SCH (10:33)
[2023-09-20] MEDS: DexAMETHasone SOD PHOS 10MG/1ML VIAL INJ IV SCH (10:35)
[2023-09-20] MEDS: FUROSEMIDE 20 MG/2 ML VIAL IV SCH (10:36)
[2023-09-20] MEDS: CEFEPIME 1GM/ 50ML 50 ML IV SCH ×2 (10:36→21:27)
[2023-09-20] MEDS ORDERED: DexmedeTOMIDine 200 MCG in D5W 5% 48 ML IV SCH (11:15)
[2023-09-20] MEDS: NOREPINEPHRINE 8 MG/250ML KIT 250 ML IV SCH (13:15)
[2023-09-20] MEDS: MAGNESIUM SULFATE 1GM/100ML 100 ML IV SCH ×2 (17:42→18:51)
[2023-09-20] MEDS: AMINO ACID INFUSION IN D10W 1,000 ML IV SCH (20:01)
[2023-09-21] VITALS (110 sets, daily range): BP systolic 102–163; BP diastolic 73–98; PULSE 63–124; RESP 16–37; TEMP 97–98.4; O2SAT 94–100
[2023-09-21] MEDS: SOD CHL 0.45% 1,000 ML IV SCH ×3 (00:52→19:50)
[2023-09-21] MEDS: ALBUTEROL SULF 2.5 MG/0.5ML(0.5%) NEB SOLN NEB SCH ×6 (02:32→22:03)
[2023-09-21] MEDS: IPRATROPIUM BROM 0.5 MG/2.5ML INH SOL NEB SCH ×6 (02:32→22:03)
[2023-09-21 04:09] LABS: Hemoglobin 7.7 g/dL (12.2-16.2); White Blood Cell 14.9 10^3/uL (4.4-10.8)
[2023-09-21 04:11] LABS: Hematocrit 23.8 % (36.0-46.0); Mean Corpuscular Hemoglobin 27.1 pg (28.0-32.0); Mean Corpuscular Hgb Conc. 32.3 g/dL (32.0-36.0); Mean Corpuscular Volume 83.7 fL (80.0-100.0); Red Blood Cells 2.84 10^6/uL (4.0-5.20); Red Cell Distribution Width 17.2 % (11.8-14.3)
[2023-09-21 04:14] LABS: Band Neutrophils % (manual) 0; Basophils % (manual) 0 (0.0-2.0); Blast Cells 0; Eosinophils % (manual) 0 (0-7); Lymphocytes % (manual) 0 (10.0-50.0); Metamyelocytes % 0; Myelocytes % 0; Promyelocytes % 0; Reactive Lymphocytes 0
[2023-09-21 04:26] LABS: Alanine Aminotransferase 16 U/L (7-40); Albumin 2.8 g/dL (3.2-4.8); Alkaline Phosphatase 97 U/L (46-116); Anion Gap 9 (5-15); Aspartate Aminotransferase 41 U/L (13-40); BUN/Creatinine Ratio 30.5 (10.0-20.0); Bilirubin, Total 0.4 mg/dL (0.2-1.0); Blood Urea Nitrogen 47 mg/dL (9-23); Calcium 7.7 mg/dL (8.7-10.4); Carbon Dioxide 27 mmol/L (20-30); Chloride 101 mmol/L (98-107); GFR African American 45 mL/min; GFR Non-African American 37 mL/min; Glucose 126 mg/dL (74-106); Magnesium 1.7 mg/dL (1.6-2.6); Phosphorus 3.2 mg/dL (2.4-5.1); Potassium 3.5 mmol/L (3.5-5.1); Sodium 137 mmol/L (136-145); Total Protein 4.3 g/dL (5.7-8.2)
[2023-09-21 05:07] LABS: Monocytes % (manual) 5 (0-12)
[2023-09-21 05:08] LABS: Platelet Estimate Decreased
[2023-09-21] MEDS: VASOPRESSIN 20 UNITS in SODIUM CHL 0.9% 99 ML IV SCH ×2 (05:26→17:11)
[2023-09-21] MEDS: InsuLIN REG 1unit/0.01ml Soln (100units/ml) SC SCH ×4 (05:52→18:00)
[2023-09-21] MEDS: ACCU-CHEK COMFORT CURVE STRIP VI SCH ×4 (05:52→18:27)
[2023-09-21] MEDS: MIDODRINE HCL 10 MG TAB PO SCH ×3 (05:52→15:06)
[2023-09-21] MEDS: METOCLOPRAMIDE HCL 5MG/ml INJ 2ml VIAL IV SCH ×3 (05:52→22:00)
[2023-09-21 08:11] LABS: Base Excess 2.6 mmol/L (-2.0-2.0)
[2023-09-21] MEDS: VANCOMYCIN 500 MG in D5W 5% 100 ML IV SCH (08:22)
[2023-09-21] MEDS: PANTOPRAZOLE 40 MG/10 ML VIAL INJ IV SCH (09:59)
[2023-09-21] MEDS: DexAMETHasone SOD PHOS 10MG/1ML VIAL INJ IV SCH (09:59)
[2023-09-21] MEDS: CEFEPIME 1GM/ 50ML 50 ML IV SCH ×2 (10:00→22:04)
[2023-09-21] MEDS ORDERED: VANCOMYCIN PER PHARMACY 0 MG IV SCH (10:00)
[2023-09-21] MEDS: FUROSEMIDE 20 MG/2 ML VIAL IV SCH (10:00)
[2023-09-21] MEDS: fentaNYL Drip 2500mCg/250mlNS 250 ML IV SCH (12:20)
[2023-09-21] MEDS: DOPamine 1600MCG/ML D5W 250 ML IV SCH ×2 (12:20→13:30)
[2023-09-21] MEDS: MIDAZOLAM DRIP 50 mg/50mL 50 ML IV SCH (13:15)
[2023-09-21] MEDS: NOREPINEPHRINE 8 MG/250ML KIT 250 ML IV SCH (13:48)
[2023-09-21 14:16] LABS: Hematocrit 24.5 % (36.0-46.0); Hemoglobin 7.9 g/dL (12.2-16.2)
[2023-09-21] MEDS: AMINO ACID INFUSION IN D10W 1,000 ML IV SCH (19:49)
[2023-09-21] MEDS ORDERED: fentaNYL Drip 2500mCg/250mlNS 250 ML IV SCH (21:15)
[2023-09-21] MEDS: APIXABAN 5 MG TAB PO SCH (22:00)
[2023-09-21 22:31] LABS: Basophils # (auto) 0 10 ^3/uL (0-0.2); Eosinophils # (auto) 0 10 ^3/uL (0-0.8); Hemoglobin 7.2 g/dL (12.2-16.2); Lymphocytes # (auto) 0.1 10 ^3/uL (0.4-5.4); Neutrophils # (auto) 11.5 10 ^3/uL (1.6-8.6)
[2023-09-21 22:32] LABS: Basophils % (auto) 0.1 % (0.0-2.0); Hematocrit 22.5 % (36.0-46.0); Lymphocytes % (auto) 0.6 % (10.0-50.0); Mean Corpuscular Hemoglobin 26.6 pg (28.0-32.0); Mean Corpuscular Hgb Conc. 31.9 g/dL (32.0-36.0); Mean Corpuscular Volume 83.5 fL (80.0-100.0); Monocytes # (auto) 0.3 10 ^3/uL (0-1.3); Monocytes % (auto) 2.2 % (0.0-12.0); Neutrophils % (auto) 97.1 % (37.0-80.0); Red Cell Distribution Width 17.6 % (11.8-14.3); White Blood Cell 11.9 10^3/uL (4.4-10.8)
[2023-09-22] VITALS (88 sets, daily range): BP systolic 110–160; BP diastolic 66–97; PULSE 87–110; RESP 17–28; TEMP 96.3–97.7; O2SAT 88–100
[2023-09-22] MEDS: IPRATROPIUM BROM 0.5 MG/2.5ML INH SOL NEB SCH ×6 (02:11→22:16)
[2023-09-22] MEDS: ALBUTEROL SULF 2.5 MG/0.5ML(0.5%) NEB SOLN NEB SCH ×6 (02:11→22:16)
[2023-09-22] MEDS: VASOPRESSIN 20 UNITS in SODIUM CHL 0.9% 99 ML IV SCH ×2 (03:40→14:47)
[2023-09-22] MEDS: METOCLOPRAMIDE HCL 5MG/ml INJ 2ml VIAL IV SCH ×3 (05:17→22:34)
[2023-09-22] MEDS: ACCU-CHEK COMFORT CURVE STRIP VI SCH ×5 (05:18→23:55)
[2023-09-22] MEDS: InsuLIN REG 1unit/0.01ml Soln (100units/ml) SC SCH ×5 (05:24→23:55)
[2023-09-22] MEDS: MIDODRINE HCL 10 MG TAB PO SCH ×3 (05:28→17:44)
[2023-09-22] MEDS: SOD CHL 0.45% 1,000 ML IV SCH ×2 (05:29→16:32)
[2023-09-22 07:41] LABS: Base Excess 0.9 mmol/L (-2.0-2.0)
[2023-09-22 08:53] LABS: Mean Corpuscular Hemoglobin 27.4 pg (28.0-32.0)
[2023-09-22 08:54] LABS: Hematocrit 29.2 % (36.0-46.0); Hemoglobin 9.4 g/dL (12.2-16.2); Mean Corpuscular Volume 85.6 fL (80.0-100.0); Red Blood Cells 3.41 10^6/uL (4.0-5.20); Red Cell Distribution Width 17.1 % (11.8-14.3); White Blood Cell 11.6 10^3/uL (4.4-10.8)
[2023-09-22 09:02] LABS: Basophils % (manual) 0 (0.0-2.0); Blast Cells 0; Eosinophils % (manual) 0 (0-7); Metamyelocytes % 0; Myelocytes % 0; Promyelocytes % 0; Reactive Lymphocytes 0
[2023-09-22 09:14] LABS: Anisocytosis Slight; Band Neutrophils % (manual) 1; Lymphocytes % (manual) 2 (10.0-50.0); Monocytes % (manual) 3 (0-12); Platelet Estimate Markedly Decreased
[2023-09-22 09:15] LABS: Giant Platelets Few; Tear Drop Cells FEW
[2023-09-22 09:27] LABS: Alanine Aminotransferase 24 U/L (7-40); Albumin 2.7 g/dL (3.2-4.8); Alkaline Phosphatase 104 U/L (46-116); Anion Gap 12 (5-15); Aspartate Aminotransferase 58 U/L (13-40); BUN/Creatinine Ratio 30.4 (10.0-20.0); Bilirubin, Total 0.5 mg/dL (0.2-1.0); Blood Urea Nitrogen 45 mg/dL (9-23); Carbon Dioxide 25 mmol/L (20-30); Chloride 99 mmol/L (98-107); Glucose 129 mg/dL (74-106); Phosphorus 2.5 mg/dL (2.4-5.1); Potassium 2.7 mmol/L (3.5-5.1); Sodium 136 mmol/L (136-145); Total Protein 4.1 g/dL (5.7-8.2)
[2023-09-22] MEDS: CEFEPIME 1GM/ 50ML 50 ML IV SCH ×2 (09:52→22:34)
[2023-09-22] MEDS: APIXABAN 5 MG TAB PO SCH ×2 (10:00→22:00)
[2023-09-22] MEDS: PANTOPRAZOLE 40 MG/10 ML VIAL INJ IV SCH (10:01)
[2023-09-22] MEDS: FUROSEMIDE 20 MG/2 ML VIAL IV SCH (10:02)
[2023-09-22] MEDS: DexAMETHasone SOD PHOS 10MG/1ML VIAL INJ IV SCH (10:03)
[2023-09-22 10:20] LABS: INR 1.19 (0.9-1.15); Partial Thromboplastin Time 28.7 SEC (24.5-34.5); Prothrombin Time 12.4 sec (9.3-11.8)
[2023-09-22 10:28] LABS: Magnesium 1.5 mg/dL (1.6-2.6)
[2023-09-22] MEDS ORDERED: POTASSIUM CHL 20MEQ/100ML 300 ML IV ONE (10:55)
[2023-09-22] MEDS ORDERED: VANCOMYCIN 500 MG in D5W 5% 100 ML IV ONE (11:00)
[2023-09-22] MEDS: POTASSIUM CHL 20MEQ/100ML 100 ML IV SCH ×3 (11:00→13:49)
[2023-09-22] MEDS ORDERED: MAGNESIUM SULFATE 1GM/100ML 100 ML IV ONE (12:00)
[2023-09-22] MEDS ORDERED: POTASSIUM PHOSPHATE 22 MEQ in SODIUM CHL 0.9% 100 ML IV ONE (12:00)
[2023-09-22] MEDS ORDERED: MORPHINE SULFATE INJ 2 MG/ml SYRG IV PRN (12:15)
[2023-09-22] MEDS ORDERED: fentaNYL 25MCG/HR 25 MCG/HR PAT TD SCH (12:40)
[2023-09-22] MEDS: NOREPINEPHRINE 8 MG/250ML KIT 250 ML IV SCH (13:15)
[2023-09-22 13:16] LABS: Rapid Influenza A Positive (Negative); Rapid Influenza B Negative (Negative)
[2023-09-22] MEDS: AMINO ACID INFUSION IN D10W 1,000 ML IV SCH (22:34)
[2023-09-23] VITALS (56 sets, daily range): BP systolic 103–139; BP diastolic 70–85; PULSE 86–110; RESP 19–33; TEMP 97.4–97.6; O2SAT 91–100
[2023-09-23] MEDS: VASOPRESSIN 20 UNITS in SODIUM CHL 0.9% 99 ML IV SCH ×2 (01:54→13:01)
[2023-09-23] MEDS: ALBUTEROL SULF 2.5 MG/0.5ML(0.5%) NEB SOLN NEB SCH ×6 (02:16→22:00)
[2023-09-23] MEDS: IPRATROPIUM BROM 0.5 MG/2.5ML INH SOL NEB SCH ×6 (02:16→22:00)
[2023-09-23] MEDS: SOD CHL 0.45% 1,000 ML IV SCH ×2 (02:31→13:01)
[2023-09-23 03:47] LABS: Mean Corpuscular Hgb Conc. 32.6 g/dL (32.0-36.0)
[2023-09-23 03:50] LABS: Hemoglobin 9.5 g/dL (12.2-16.2); Mean Corpuscular Hemoglobin 27.8 pg (28.0-32.0); Mean Corpuscular Volume 85.3 fL (80.0-100.0); Red Cell Distribution Width 16.9 % (11.8-14.3); White Blood Cell 17.4 10^3/uL (4.4-10.8)
[2023-09-23 04:03] LABS: Band Neutrophils % (manual) 0; Basophils % (manual) 0 (0.0-2.0); Blast Cells 0; Eosinophils % (manual) 0 (0-7); Metamyelocytes % 0; Myelocytes % 0; Promyelocytes % 0; Reactive Lymphocytes 0
[2023-09-23 04:06] LABS: Alanine Aminotransferase 28 U/L (7-40); Albumin 2.7 g/dL (3.2-4.8); Alkaline Phosphatase 135 U/L (46-116); Anion Gap 11 (5-15); Aspartate Aminotransferase 74 U/L (13-40); BUN/Creatinine Ratio 32.6 (10.0-20.0); Bilirubin, Total 0.6 mg/dL (0.2-1.0); Blood Urea Nitrogen 43 mg/dL (9-23); Calcium 7.7 mg/dL (8.7-10.4); Carbon Dioxide 23 mmol/L (20-30); Chloride 99 mmol/L (98-107); Glucose 94 mg/dL (74-106); Magnesium 1.3 mg/dL (1.6-2.6); Phosphorus 2.7 mg/dL (2.4-5.1); Potassium 3.2 mmol/L (3.5-5.1); Sodium 133 mmol/L (136-145); Total Protein 4.3 g/dL (5.7-8.2)
[2023-09-23 05:23] LABS: Lymphocytes % (manual) 3 (10.0-50.0); Monocytes % (manual) 1 (0-12); Platelet Estimate Decreased
[2023-09-23 05:24] LABS: Giant Platelets Few
[2023-09-23] MEDS: METOCLOPRAMIDE HCL 5MG/ml INJ 2ml VIAL IV SCH ×3 (06:00→21:08)
[2023-09-23] MEDS: MIDODRINE HCL 10 MG TAB PO SCH ×3 (06:00→17:36)
[2023-09-23] MEDS: InsuLIN REG 1unit/0.01ml Soln (100units/ml) SC SCH ×3 (06:00→17:51)
[2023-09-23] MEDS: ACCU-CHEK COMFORT CURVE STRIP VI SCH ×3 (06:31→17:44)
[2023-09-23] MEDS: APIXABAN 5 MG TAB PO SCH ×2 (10:00→21:09)
[2023-09-23] MEDS ORDERED: POTASSIUM PHOSPHATE 44 MEQ in D5W 5% 250 ML IV ONE (10:15)
[2023-09-23] MEDS ORDERED: MAGNESIUM SULFATE 1GM/100ML 100 ML IV ONE (10:15)
[2023-09-23] MEDS: PANTOPRAZOLE 40 MG/10 ML VIAL INJ IV SCH (10:17)
[2023-09-23] MEDS: DexAMETHasone SOD PHOS 10MG/1ML VIAL INJ IV SCH (10:17)
[2023-09-23] MEDS: CEFEPIME 1GM/ 50ML 50 ML IV SCH ×2 (10:18→21:08)
[2023-09-23] MEDS: FUROSEMIDE 20 MG/2 ML VIAL IV SCH (10:18)
[2023-09-23] MEDS: NOREPINEPHRINE 8 MG/250ML KIT 250 ML IV SCH (13:15)
[2023-09-23] MEDS ORDERED: POTASSIUM PHOSPHATE 22 MEQ in SODIUM CHL 0.9% 100 ML IV ONE (14:30)
[2023-09-23] MEDS: AMINO ACID INFUSION IN D10W 1,000 ML IV SCH (20:01)
[2023-09-23] MEDS ORDERED: FUROSEMIDE 40 MG/4 ML VIAL IV ONE (20:45)
[2023-09-23] MEDS ORDERED: FUROSEMIDE 40 MG/4 ML VIAL ONE (21:05)
[2023-09-23 21:51] LABS: Base Excess -2.1 mmol/L (-2.0-2.0)
[2023-09-24] VITALS (69 sets, daily range): BP systolic 88–136; BP diastolic 54–89; PULSE 82–112; RESP 16–34; TEMP 97.6–98.9; O2SAT 88–100
[2023-09-24] MEDS: VASOPRESSIN 20 UNITS in SODIUM CHL 0.9% 99 ML IV SCH ×3 (00:08→22:22)
[2023-09-24] MEDS: ACCU-CHEK COMFORT CURVE STRIP VI SCH ×5 (00:10→23:43)
[2023-09-24] MEDS: IPRATROPIUM BROM 0.5 MG/2.5ML INH SOL NEB SCH ×6 (02:06→21:34)
[2023-09-24] MEDS: ALBUTEROL SULF 2.5 MG/0.5ML(0.5%) NEB SOLN NEB SCH ×6 (02:06→21:34)
[2023-09-24 04:11] LABS: Hemoglobin 8.8 g/dL (12.2-16.2)
[2023-09-24 04:14] LABS: Hematocrit 26.3 % (36.0-46.0); Mean Corpuscular Hemoglobin 28.4 pg (28.0-32.0); Mean Corpuscular Hgb Conc. 33.4 g/dL (32.0-36.0); Red Cell Distribution Width 17.1 % (11.8-14.3)
[2023-09-24 04:20] LABS: Alanine Aminotransferase 27 U/L (7-40); Alkaline Phosphatase 164 U/L (46-116); Anion Gap 11 (5-15); Calcium 7.7 mg/dL (8.7-10.4); Carbon Dioxide 24 mmol/L (20-30); Chloride 98 mmol/L (98-107); Glucose 112 mg/dL (74-106); Potassium 3.1 mmol/L (3.5-5.1); Sodium 133 mmol/L (136-145)
[2023-09-24 04:21] LABS: Albumin 2.7 g/dL (3.2-4.8); Aspartate Aminotransferase 56 U/L (13-40)
[2023-09-24 04:25] LABS: Band Neutrophils % (manual) 0; Basophils % (manual) 0 (0.0-2.0); Blast Cells 0; Eosinophils % (manual) 0 (0-7); Metamyelocytes % 0; Myelocytes % 0; Promyelocytes % 0; Reactive Lymphocytes 0
[2023-09-24 04:31] LABS: BUN/Creatinine Ratio 34.5 (10.0-20.0); Blood Urea Nitrogen 48 mg/dL (9-23)
[2023-09-24 04:32] LABS: Magnesium 1.4 mg/dL (1.6-2.6)
[2023-09-24 04:33] LABS: Bilirubin, Total 0.5 mg/dL (0.2-1.0); Phosphorus 3.3 mg/dL (2.4-5.1)
[2023-09-24 04:34] LABS: Total Protein 4.4 g/dL (5.7-8.2)
[2023-09-24] MEDS: MIDODRINE HCL 10 MG TAB PO SCH ×3 (06:00→17:43)
[2023-09-24] MEDS: METOCLOPRAMIDE HCL 5MG/ml INJ 2ml VIAL IV SCH ×3 (06:00→22:00)
[2023-09-24] MEDS: InsuLIN REG 1unit/0.01ml Soln (100units/ml) SC SCH ×5 (06:00→23:43)
[2023-09-24 06:45] LABS: Lymphocytes % (manual) 2 (10.0-50.0); Monocytes % (manual) 2 (0-12)
[2023-09-24 06:54] LABS: Anisocytosis Slight; Large Platelets FEW; Platelet Estimate Decreased
[2023-09-24 06:55] LABS: Giant Platelets Few
[2023-09-24 08:44] LABS: Base Excess -1.1 mmol/L (-2.0-2.0)
[2023-09-24] MEDS: APIXABAN 5 MG TAB PO SCH ×2 (10:00→22:00)
[2023-09-24] MEDS: CEFEPIME 1GM/ 50ML 50 ML IV SCH ×2 (10:55→22:30)
[2023-09-24] MEDS: DexAMETHasone SOD PHOS 10MG/1ML VIAL INJ IV SCH (10:55)
[2023-09-24] MEDS: PANTOPRAZOLE 40 MG/10 ML VIAL INJ IV SCH (10:55)
[2023-09-24] MEDS: NOREPINEPHRINE 8 MG/250ML KIT 250 ML IV SCH (13:15)
[2023-09-24] MEDS ORDERED: VANCOMYCIN 500 MG in D5W 5% 100 ML IV ONE (14:00)
[2023-09-24] MEDS: MAGNESIUM SULFATE 1GM/100ML 100 ML IV SCH ×2 (15:15→16:16)
[2023-09-24] MEDS: POTASSIUM CHL 20MEQ/100ML 100 ML IV SCH ×2 (15:16→17:44)
[2023-09-24] MEDS: FUROSEMIDE 20 MG/2 ML VIAL IV SCH (16:24)
[2023-09-24] MEDS: AMINO ACID INFUSION IN D10W 1,000 ML IV SCH (21:02)
[2023-09-25] VITALS (55 sets, daily range): BP systolic 95–220; BP diastolic 46–217; PULSE 83–112; RESP 15–30; TEMP 97–98; O2SAT 79–99
[2023-09-25] MEDS: ALBUTEROL SULF 2.5 MG/0.5ML(0.5%) NEB SOLN NEB SCH ×6 (03:19→22:01)
[2023-09-25] MEDS: IPRATROPIUM BROM 0.5 MG/2.5ML INH SOL NEB SCH ×6 (03:19→22:01)
[2023-09-25 03:48] LABS: Potassium 3.4 mmol/L (3.5-5.1)
[2023-09-25 03:49] LABS: Calcium 7.5 mg/dL (8.7-10.4)
[2023-09-25 03:55] LABS: Albumin 2.6 g/dL (3.2-4.8); BUN/Creatinine Ratio 35.7 (10.0-20.0); Magnesium 1.7 mg/dL (1.6-2.6)
[2023-09-25 03:57] LABS: Phosphorus 3.4 mg/dL (2.4-5.1)
[2023-09-25] MEDS: ACCU-CHEK COMFORT CURVE STRIP VI SCH ×3 (06:00→18:34)
[2023-09-25] MEDS: InsuLIN REG 1unit/0.01ml Soln (100units/ml) SC SCH ×3 (06:00→18:39)
[2023-09-25] MEDS: MIDODRINE HCL 10 MG TAB PO SCH ×3 (06:00→18:33)
[2023-09-25] MEDS: METOCLOPRAMIDE HCL 5MG/ml INJ 2ml VIAL IV SCH ×3 (06:00→21:39)
[2023-09-25] MEDS: VASOPRESSIN 20 UNITS in SODIUM CHL 0.9% 99 ML IV SCH ×2 (09:29→20:36)
[2023-09-25] MEDS: APIXABAN 5 MG TAB PO SCH ×2 (10:00→22:00)
[2023-09-25] MEDS: PANTOPRAZOLE 40 MG/10 ML VIAL INJ IV SCH (10:23)
[2023-09-25] MEDS: DexAMETHasone SOD PHOS 10MG/1ML VIAL INJ IV SCH (10:24)
[2023-09-25] MEDS: CEFEPIME 1GM/ 50ML 50 ML IV SCH ×2 (10:26→21:39)
[2023-09-25] MEDS: FUROSEMIDE 20 MG/2 ML VIAL IV SCH (10:28)
[2023-09-25] MEDS: POTASSIUM CHL 20MEQ/100ML 100 ML IV SCH ×2 (11:37→14:50)
[2023-09-25] MEDS ORDERED: ALBUMIN 25% 100 ML IV ONE (13:00)
[2023-09-25] MEDS: NOREPINEPHRINE 8 MG/250ML KIT 250 ML IV SCH (13:15)
[2023-09-25] MEDS: MAGNESIUM SULFATE 1GM/100ML 100 ML IV SCH ×3 (13:49→16:50)
[2023-09-25] MEDS ORDERED: Glucerna 1.2 Cal 1Liter BOTTLE GT SCH (14:30)
[2023-09-25 18:37] LABS: Base Excess -0.9 mmol/L (-2.0-2.0)
[2023-09-25] MEDS: AMINO ACID INFUSION IN D10W 1,000 ML IV SCH (20:20)
[2023-09-26] VITALS (48 sets, daily range): BP systolic 99–134; BP diastolic 60–81; PULSE 71–101; RESP 15–30; TEMP 94.3–97.7; O2SAT 86–100
[2023-09-26] MEDS: IPRATROPIUM BROM 0.5 MG/2.5ML INH SOL NEB SCH ×6 (02:18→23:01)
[2023-09-26] MEDS: ALBUTEROL SULF 2.5 MG/0.5ML(0.5%) NEB SOLN NEB SCH ×6 (02:18→23:01)
[2023-09-26 04:50] LABS: Hemoglobin 7.2 g/dL (12.2-16.2); White Blood Cell 11.8 10^3/uL (4.4-10.8)
[2023-09-26 04:52] LABS: Hematocrit 22.5 % (36.0-46.0); Mean Corpuscular Hemoglobin 27.7 pg (28.0-32.0); Mean Corpuscular Volume 86.5 fL (80.0-100.0); Red Cell Distribution Width 17.1 % (11.8-14.3)
[2023-09-26 05:03] LABS: INR 1.25 (0.9-1.15); Partial Thromboplastin Time 30.9 SEC (24.5-34.5); Prothrombin Time 12.9 sec (9.3-11.8)
[2023-09-26 05:15] LABS: Alanine Aminotransferase 27 U/L (7-40); Alkaline Phosphatase 227 U/L (46-116); Anion Gap 9 (5-15); Aspartate Aminotransferase 42 U/L (13-40); BUN/Creatinine Ratio 35.6 (10.0-20.0); Blood Urea Nitrogen 53 mg/dL (9-23); Calcium 7.8 mg/dL (8.7-10.4); Carbon Dioxide 24 mmol/L (20-30); Chloride 100 mmol/L (98-107); Glucose 107 mg/dL (74-106); Magnesium 2.2 mg/dL (1.6-2.6); Potassium 3.7 mmol/L (3.5-5.1); Sodium 133 mmol/L (136-145)
[2023-09-26 05:16] LABS: Bilirubin, Total 0.4 mg/dL (0.2-1.0); Phosphorus 3.4 mg/dL (2.4-5.1); Total Protein 4.6 g/dL (5.7-8.2)
[2023-09-26 05:22] LABS: Band Neutrophils % (manual) 0; Basophils % (manual) 0 (0.0-2.0); Blast Cells 0; Eosinophils % (manual) 0 (0-7); Metamyelocytes % 0; Myelocytes % 0; Promyelocytes % 0; Reactive Lymphocytes 0
[2023-09-26 05:31] LABS: Lymphocytes % (manual) 1 (10.0-50.0); Monocytes % (manual) 1 (0-12)
[2023-09-26 05:34] LABS: Anisocytosis Slight; Giant Platelets Few; Large Platelets FEW; Ovalocytes FEW
[2023-09-26 05:35] LABS: Platelet Estimate Decreased
[2023-09-26] MEDS: METOCLOPRAMIDE HCL 5MG/ml INJ 2ml VIAL IV SCH ×3 (05:36→22:11)
[2023-09-26] MEDS: MIDODRINE HCL 10 MG TAB PO SCH ×3 (05:36→18:23)
[2023-09-26] MEDS: ACCU-CHEK COMFORT CURVE STRIP VI SCH ×4 (05:36→17:46)
[2023-09-26] MEDS: InsuLIN REG 1unit/0.01ml Soln (100units/ml) SC SCH ×4 (06:00→17:46)
[2023-09-26] MEDS: VASOPRESSIN 20 UNITS in SODIUM CHL 0.9% 99 ML IV SCH (07:43)
[2023-09-26] MEDS: APIXABAN 5 MG TAB PO SCH ×2 (09:27→22:00)
[2023-09-26] MEDS: DexAMETHasone SOD PHOS 10MG/1ML VIAL INJ IV SCH (11:21)
[2023-09-26] MEDS: FUROSEMIDE 20 MG/2 ML VIAL IV SCH (11:22)
[2023-09-26] MEDS: CEFEPIME 1GM/ 50ML 50 ML IV SCH ×2 (11:22→22:00)
[2023-09-26] MEDS: PANTOPRAZOLE 40 MG/10 ML VIAL INJ IV SCH (11:23)
[2023-09-26] MEDS: VANCOMYCIN 500 MG in D5W 5% 100 ML IV SCH (14:40)
[2023-09-26] MEDS: AMINO ACID INFUSION IN D10W 1,000 ML IV SCH (20:27)
[2023-09-27] VITALS (90 sets, daily range): BP systolic 75–116; BP diastolic 42–72; PULSE 78–122; RESP 18–33; TEMP 95.2–99.3; O2SAT 87–100
[2023-09-27] MEDS: ACCU-CHEK COMFORT CURVE STRIP VI SCH ×4 (00:05→18:00)
[2023-09-27] MEDS: InsuLIN REG 1unit/0.01ml Soln (100units/ml) SC SCH ×4 (00:06→18:00)
[2023-09-27 01:55] LABS: Body Fluid Polymorphonuclear 36 % (0-25); Body Fluid Red Blood Cells 808 CUMM (0-2000); Body Fluid White Blood Cells 203 CUMM (0-200)
[2023-09-27] MEDS: ALBUTEROL SULF 2.5 MG/0.5ML(0.5%) NEB SOLN NEB SCH ×6 (02:23→21:59)
[2023-09-27] MEDS: IPRATROPIUM BROM 0.5 MG/2.5ML INH SOL NEB SCH ×6 (02:23→21:59)
[2023-09-27 05:43] LABS: Potassium 3.8 mmol/L (3.5-5.1)
[2023-09-27] MEDS ORDERED: SODIUM CHLORIDE 0.9% 500 ML IV ONE (05:45)
[2023-09-27 05:49] LABS: BUN/Creatinine Ratio 35.4 (10.0-20.0)
[2023-09-27 05:51] LABS: Albumin 2.8 g/dL (3.2-4.8); Phosphorus 4.2 mg/dL (2.4-5.1)
[2023-09-27] MEDS: MIDODRINE HCL 10 MG TAB PO SCH ×3 (05:54→17:42)
[2023-09-27] MEDS: METOCLOPRAMIDE HCL 5MG/ml INJ 2ml VIAL IV SCH ×3 (06:00→22:43)
[2023-09-27] MEDS: VASOPRESSIN 20 UNITS in SODIUM CHL 0.9% 99 ML IV SCH ×2 (07:00→17:04)
[2023-09-27] MEDS ORDERED: SODIUM CHLORIDE 0.9% 1,000 ML IV SCH (09:00)
[2023-09-27 09:09] LABS: Basophils # (auto) 0 10 ^3/uL (0-0.2); Eosinophils # (auto) 0 10 ^3/uL (0-0.8); Lymphocytes # (auto) 0.1 10 ^3/uL (0.4-5.4); Lymphocytes % (auto) 0.7 % (10.0-50.0); Mean Corpuscular Hemoglobin 27.9 pg (28.0-32.0); Monocytes # (auto) 0.1 10 ^3/uL (0-1.3)
[2023-09-27 09:11] LABS: Basophils % (auto) 0.1 % (0.0-2.0); Hematocrit 30.8 % (36.0-46.0); Hemoglobin 9.9 g/dL (12.2-16.2); Mean Corpuscular Hgb Conc. 32.2 g/dL (32.0-36.0); Mean Corpuscular Volume 86.7 fL (80.0-100.0); Monocytes % (auto) 0.7 % (0.0-12.0); Neutrophils # (auto) 12.2 10 ^3/uL (1.6-8.6); Neutrophils % (auto) 98.5 % (37.0-80.0); Red Blood Cells 3.55 10^6/uL (4.0-5.20); Red Cell Distribution Width 17.1 % (11.8-14.3); White Blood Cell 12.4 10^3/uL (4.4-10.8)
[2023-09-27] MEDS: DexAMETHasone SOD PHOS 10MG/1ML VIAL INJ IV SCH (09:25)
[2023-09-27] MEDS: PANTOPRAZOLE 40 MG/10 ML VIAL INJ IV SCH (09:25)
[2023-09-27] MEDS: CEFEPIME 1GM/ 50ML 50 ML IV SCH ×2 (09:25→22:43)
[2023-09-27 09:42] LABS: Giant Platelets Few; Platelet Estimate Markedly Decreased
[2023-09-27] MEDS: FUROSEMIDE 20 MG/2 ML VIAL IV SCH ×2 (10:00→15:45)
[2023-09-27] MEDS: APIXABAN 5 MG TAB PO SCH ×2 (10:00→22:00)
[2023-09-27] MEDS: NOREPINEPHRINE 8 MG/250ML KIT 250 ML IV SCH ×2 (11:56→13:15)
[2023-09-27 15:27] LABS: Basophils # (auto) 0 10 ^3/uL (0-0.2); Basophils % (auto) 0.3 % (0.0-2.0); Eosinophils # (auto) 0 10 ^3/uL (0-0.8); Hematocrit 29.8 % (36.0-46.0); Hemoglobin 9.5 g/dL (12.2-16.2); Lymphocytes # (auto) 0 10 ^3/uL (0.4-5.4); Lymphocytes % (auto) 0.3 % (10.0-50.0); Mean Corpuscular Hemoglobin 27.5 pg (28.0-32.0); Mean Corpuscular Hgb Conc. 31.8 g/dL (32.0-36.0); Mean Corpuscular Volume 86.4 fL (80.0-100.0); Monocytes # (auto) 0.1 10 ^3/uL (0-1.3); Monocytes % (auto) 0.8 % (0.0-12.0); Neutrophils % (auto) 98.6 % (37.0-80.0); Red Blood Cells 3.45 10^6/uL (4.0-5.20); Red Cell Distribution Width 17.4 % (11.8-14.3); White Blood Cell 12.2 10^3/uL (4.4-10.8)
[2023-09-27] MEDS: ALBUMIN 25% 50 ML IV SCH ×2 (15:45→23:30)
[2023-09-27 15:53] LABS: Base Excess -5.9 mmol/L (-2.0-2.0)
[2023-09-27] MEDS: AMINO ACID INFUSION IN D10W 1,000 ML IV SCH (20:00)
[2023-09-27] MEDS ORDERED: ETOMIDATE (2MG/ML) 20ML VIAL IV ONE ×2 (21:10→21:15)
[2023-09-27] MEDS ORDERED: SUCCINYLCHOLINE CHLORIDE 20 MG/ML 10ML VIAL IV ONE ×2 (21:12→21:15)
[2023-09-27] MEDS ORDERED: MIDAZOLAM DRIP 50 mg/50mL 50 ML IV ONE (21:21)
[2023-09-27] MEDS: MIDAZOLAM DRIP 50 mg/50mL 50 ML IV SCH (21:45)
[2023-09-27 23:03] LABS: Base Excess -12.7 mmol/L (-2.0-2.0)
[2023-09-27] MEDS ORDERED: SODIUM BICARBONATE 8.4 % INJ 50ML VIAL IV ONE ×2 (23:15→23:26)
[2023-09-27] MEDS: SODIUM BICARBONATE 50ML VIAL 150 ML in D5W 5% 1,000 ML IV SCH (23:35)
[2023-09-28] VITALS (102 sets, daily range): BP systolic 69–148; BP diastolic 44–97; PULSE 112–127; RESP 24–37; TEMP 97.5–98.8; O2SAT 87–100
[2023-09-28 01:30] LABS: Base Excess -4.6 mmol/L (-2.0-2.0)
[2023-09-28] MEDS: IPRATROPIUM BROM 0.5 MG/2.5ML INH SOL NEB SCH ×6 (02:09→22:37)
[2023-09-28] MEDS: ALBUTEROL SULF 2.5 MG/0.5ML(0.5%) NEB SOLN NEB SCH ×7 (02:09→22:37)
[2023-09-28] MEDS: VASOPRESSIN 20 UNITS in SODIUM CHL 0.9% 99 ML IV SCH ×2 (04:11→13:50)
[2023-09-28] MEDS: ACCU-CHEK COMFORT CURVE STRIP VI SCH ×4 (06:23→18:01)
[2023-09-28] MEDS: METOCLOPRAMIDE HCL 5MG/ml INJ 2ml VIAL IV SCH ×3 (06:23→21:58)
[2023-09-28] MEDS: InsuLIN REG 1unit/0.01ml Soln (100units/ml) SC SCH ×4 (06:26→18:04)
[2023-09-28] MEDS: MIDODRINE HCL 10 MG TAB PO SCH ×2 (06:26→08:07)
[2023-09-28 07:08] LABS: Alanine Aminotransferase 27 U/L (7-40); Alkaline Phosphatase 302 U/L (46-116); Anion Gap 10 (5-15); Aspartate Aminotransferase 30 U/L (13-40); BUN/Creatinine Ratio 34.7 (10.0-20.0); Bilirubin, Total 0.5 mg/dL (0.2-1.0); Calcium 7.8 mg/dL (8.7-10.4); Carbon Dioxide 26 mmol/L (20-30); Chloride 101 mmol/L (98-107); Glucose 232 mg/dL (74-106); Phosphorus 5.5 mg/dL (2.4-5.1); Potassium 3.6 mmol/L (3.5-5.1); Sodium 137 mmol/L (136-145); Total Protein 4.5 g/dL (5.7-8.2)
[2023-09-28 07:14] LABS: Blood Urea Nitrogen 70 mg/dL (9-23)
[2023-09-28] MEDS: ALBUMIN 25% 50 ML IV SCH (07:52)
[2023-09-28] MEDS: APIXABAN 5 MG TAB PO SCH ×2 (07:54→21:58)
[2023-09-28] MEDS: PANTOPRAZOLE 40 MG/10 ML VIAL INJ IV SCH (08:18)
[2023-09-28] MEDS: DexAMETHasone SOD PHOS 10MG/1ML VIAL INJ IV SCH (08:19)
[2023-09-28] MEDS: FUROSEMIDE 20 MG/2 ML VIAL IV SCH (08:19)
[2023-09-28 08:28] LABS: Base Excess -6.4 mmol/L (-2.0-2.0)
[2023-09-28] MEDS: BUMETANIDE INJECTION 12.5 MG in GIVE UN-DILUTED 0 ML IV SCH ×2 (08:30→18:00)
[2023-09-28] MEDS: SODIUM BICARBONATE 50ML VIAL 150 ML in D5W 5% 1,000 ML IV SCH ×2 (08:43→18:00)
[2023-09-28 08:53] LABS: Basophils # (auto) 0 10 ^3/uL (0-0.2); Basophils % (auto) 0.4 % (0.0-2.0); Eosinophils # (auto) 0 10 ^3/uL (0-0.8); Hematocrit 31.5 % (36.0-46.0); Hemoglobin 9.9 g/dL (12.2-16.2); Lymphocytes # (auto) 0.1 10 ^3/uL (0.4-5.4); Lymphocytes % (auto) 0.8 % (10.0-50.0); Mean Corpuscular Hemoglobin 27.5 pg (28.0-32.0); Mean Corpuscular Hgb Conc. 31.5 g/dL (32.0-36.0); Mean Corpuscular Volume 87.2 fL (80.0-100.0); Monocytes # (auto) 0.1 10 ^3/uL (0-1.3); Neutrophils # (auto) 10.1 10 ^3/uL (1.6-8.6); Neutrophils % (auto) 97.8 % (37.0-80.0); Red Blood Cells 3.61 10^6/uL (4.0-5.20); Red Cell Distribution Width 17.2 % (11.8-14.3); White Blood Cell 10.3 10^3/uL (4.4-10.8)
[2023-09-28] MEDS: CEFEPIME 1GM/ 50ML 50 ML IV SCH ×2 (10:13→21:58)
[2023-09-28] MEDS: NOREPINEPHRINE 8 MG/250ML KIT 250 ML IV SCH (10:13)
[2023-09-28] MEDS: NOREPINEPHRINE BITARTRATE 32 MG in SODIUM CHL 0.9% 218 ML IV SCH (11:00)
[2023-09-28] MEDS: VANCOMYCIN 500 MG in D5W 5% 100 ML IV SCH (13:50)
[2023-09-28] MEDS: MIDAZOLAM DRIP 50 mg/50mL 50 ML IV SCH (17:53)
[2023-09-28 17:57] LABS: Rapid Influenza A Negative (Negative); Rapid Influenza B Negative (Negative)
[2023-09-28] MEDS: fentaNYL Drip 2500mCg/250mlNS 250 ML IV SCH (19:00)
[2023-09-28] MEDS ORDERED: PHENYLEPHRINE IV 250 ML IV ONE (19:26)
[2023-09-28] MEDS: EPINEPHrine HCL 250 ML IV SCH (19:30)
[2023-09-28] MEDS: PHENYLEPHRINE IV 250 ML IV SCH (20:37)
[2023-09-28] MEDS: AMINO ACID INFUSION IN D10W 1,000 ML IV SCH (20:38)
[2023-09-29] VITALS (111 sets, daily range): BP systolic 78–166; BP diastolic 44–114; PULSE 107–150; RESP 31–37; TEMP 98.2–98.8; O2SAT 88–100
[2023-09-29] MEDS: ACCU-CHEK COMFORT CURVE STRIP VI SCH ×4 (00:33→17:05)
[2023-09-29] MEDS: InsuLIN REG 1unit/0.01ml Soln (100units/ml) SC SCH ×4 (00:35→17:05)
[2023-09-29] MEDS: PHENYLEPHRINE IV 250 ML IV SCH (00:49)
[2023-09-29] MEDS: ALBUTEROL SULF 2.5 MG/0.5ML(0.5%) NEB SOLN NEB SCH ×6 (02:19→22:16)
[2023-09-29] MEDS: IPRATROPIUM BROM 0.5 MG/2.5ML INH SOL NEB SCH ×6 (02:19→22:16)
[2023-09-29] MEDS: VASOPRESSIN 20 UNITS in SODIUM CHL 0.9% 99 ML IV SCH ×2 (02:25→13:32)
[2023-09-29] MEDS: SODIUM BICARBONATE 50ML VIAL 150 ML in D5W 5% 1,000 ML IV SCH ×3 (03:25→22:38)
[2023-09-29] MEDS: METOCLOPRAMIDE HCL 5MG/ml INJ 2ml VIAL IV SCH ×3 (05:41→19:53)
[2023-09-29] MEDS: APIXABAN 5 MG TAB PO SCH ×2 (07:13→19:53)
[2023-09-29] MEDS: DexAMETHasone SOD PHOS 10MG/1ML VIAL INJ IV SCH (07:25)
[2023-09-29] MEDS: PANTOPRAZOLE 40 MG/10 ML VIAL INJ IV SCH (07:25)
[2023-09-29] MEDS: fentaNYL Drip 2500mCg/250mlNS 250 ML IV SCH ×2 (08:45→20:08)
[2023-09-29 09:21] LABS: Basophils # (auto) 0 10 ^3/uL (0-0.2); Basophils % (auto) 0.1 % (0.0-2.0); Eosinophils # (auto) 0 10 ^3/uL (0-0.8); Lymphocytes # (auto) 0.1 10 ^3/uL (0.4-5.4); Mean Corpuscular Hgb Conc. 32.7 g/dL (32.0-36.0); White Blood Cell 7.4 10^3/uL (4.4-10.8)
[2023-09-29 09:23] LABS: Alanine Aminotransferase 83 U/L (7-40); Albumin 2.6 g/dL (3.2-4.8); Alkaline Phosphatase 212 U/L (46-116); Anion Gap 9 (5-15); Aspartate Aminotransferase 188 U/L (13-40); Blood Urea Nitrogen 73 mg/dL (9-23); Carbon Dioxide 28 mmol/L (20-30); Chloride 96 mmol/L (98-107); Glucose 190 mg/dL (74-106); Magnesium 1.8 mg/dL (1.6-2.6); Potassium 3.1 mmol/L (3.5-5.1); Sodium 133 mmol/L (136-145)
[2023-09-29] MEDS: CEFEPIME 1GM/ 50ML 50 ML IV SCH ×2 (09:23→19:53)
[2023-09-29 09:24] LABS: Bilirubin, Total 0.3 mg/dL (0.2-1.0); Hemoglobin 9.8 g/dL (12.2-16.2); Mean Corpuscular Hemoglobin 28.2 pg (28.0-32.0); Mean Corpuscular Volume 86.2 fL (80.0-100.0); Monocytes # (auto) 0 10 ^3/uL (0-1.3); Monocytes % (auto) 0.5 % (0.0-12.0); Neutrophils # (auto) 7.3 10 ^3/uL (1.6-8.6); Neutrophils % (auto) 98.4 % (37.0-80.0); Phosphorus 5.1 mg/dL (2.4-5.1); Red Blood Cells 3.48 10^6/uL (4.0-5.20); Red Cell Distribution Width 16.9 % (11.8-14.3); Total Protein 3.8 g/dL (5.7-8.2)
[2023-09-29] MEDS: PHENYLEPHRINE INJ 80 MG in SODIUM CHL 0.9% 242 ML IV SCH (09:30)
[2023-09-29] MEDS: POTASSIUM CHL 20MEQ/100ML 100 ML IV SCH ×2 (10:53→12:45)
[2023-09-29] MEDS: NOREPINEPHRINE BITARTRATE 32 MG in SODIUM CHL 0.9% 218 ML IV SCH (11:00)
[2023-09-29] MEDS ORDERED: CALCIUM GLUC 1,000mg/50ml-NS 50 ML IV ONE (11:30)
[2023-09-29 12:05] LABS: Base Excess -1.7 mmol/L (-2.0-2.0)
[2023-09-29] MEDS: EPINEPHrine HCL 250 ML IV SCH (15:25)
[2023-09-29] MEDS: MIDAZOLAM DRIP 50 mg/50mL 50 ML IV SCH (15:25)
[2023-09-29] MEDS: AMINO ACID INFUSION IN D10W 1,000 ML IV SCH (19:53)
[2023-09-29] MEDS: BUMETANIDE INJECTION 12.5 MG in GIVE UN-DILUTED 0 ML IV SCH (19:56)
[2023-09-30] VITALS (114 sets, daily range): BP systolic 71–143; BP diastolic 39–102; PULSE 93–123; RESP 36–37; TEMP 96.4–99; O2SAT 60–100
[2023-09-30] MEDS: ACCU-CHEK COMFORT CURVE STRIP VI SCH ×4 (00:01→17:02)
[2023-09-30] MEDS: InsuLIN REG 1unit/0.01ml Soln (100units/ml) SC SCH ×4 (00:02→17:03)
[2023-09-30] MEDS: VASOPRESSIN 20 UNITS in SODIUM CHL 0.9% 99 ML IV SCH ×3 (00:39→22:53)
[2023-09-30] MEDS: IPRATROPIUM BROM 0.5 MG/2.5ML INH SOL NEB SCH ×6 (02:10→22:41)
[2023-09-30] MEDS: ALBUTEROL SULF 2.5 MG/0.5ML(0.5%) NEB SOLN NEB SCH ×6 (02:10→22:41)
[2023-09-30] MEDS: METOCLOPRAMIDE HCL 5MG/ml INJ 2ml VIAL IV SCH ×3 (04:59→22:09)
[2023-09-30 05:15] LABS: Alanine Aminotransferase 79 U/L (7-40); Albumin 2.5 g/dL (3.2-4.8); Alkaline Phosphatase 212 U/L (46-116); Anion Gap 7 (5-15); Aspartate Aminotransferase 119 U/L (13-40); BUN/Creatinine Ratio 32.6 (10.0-20.0); Blood Urea Nitrogen 79 mg/dL (9-23); Calcium 7.2 mg/dL (8.7-10.4); Carbon Dioxide 30 mmol/L (20-30); Chloride 94 mmol/L (98-107); Glucose 157 mg/dL (74-106); Magnesium 1.6 mg/dL (1.6-2.6); Potassium 3.5 mmol/L (3.5-5.1); Sodium 131 mmol/L (136-145)
[2023-09-30 05:16] LABS: Bilirubin, Total 0.4 mg/dL (0.2-1.0); Phosphorus 4.2 mg/dL (2.4-5.1); Total Protein 3.9 g/dL (5.7-8.2)
[2023-09-30 05:20] LABS: Basophils # (auto) 0 10 ^3/uL (0-0.2); Basophils % (auto) 0.2 % (0.0-2.0); Eosinophils # (auto) 0 10 ^3/uL (0-0.8); Hemoglobin 9.4 g/dL (12.2-16.2); Lymphocytes # (auto) 0.1 10 ^3/uL (0.4-5.4); Mean Corpuscular Hemoglobin 28.3 pg (28.0-32.0); Monocytes # (auto) 0 10 ^3/uL (0-1.3); Red Blood Cells 3.31 10^6/uL (4.0-5.20)
[2023-09-30 05:23] LABS: Hematocrit 27.8 % (36.0-46.0); Lymphocytes % (auto) 1.2 % (10.0-50.0); Mean Corpuscular Hgb Conc. 33.7 g/dL (32.0-36.0); Monocytes % (auto) 0.7 % (0.0-12.0); Neutrophils # (auto) 5.7 10 ^3/uL (1.6-8.6); Neutrophils % (auto) 97.9 % (37.0-80.0); Red Cell Distribution Width 16.4 % (11.8-14.3); White Blood Cell 5.9 10^3/uL (4.4-10.8)
[2023-09-30] MEDS: SODIUM BICARBONATE 50ML VIAL 150 ML in D5W 5% 1,000 ML IV SCH ×2 (06:27→15:39)
[2023-09-30] MEDS: PHENYLEPHRINE INJ 80 MG in SODIUM CHL 0.9% 242 ML IV SCH (06:49)
[2023-09-30] MEDS: APIXABAN 5 MG TAB PO SCH ×2 (06:49→22:00)
[2023-09-30] MEDS: NOREPINEPHRINE BITARTRATE 32 MG in SODIUM CHL 0.9% 218 ML IV SCH (07:03)
[2023-09-30] MEDS: CEFEPIME 1GM/ 50ML 50 ML IV SCH ×2 (07:32→22:09)
[2023-09-30] MEDS: EPINEPHrine HCL 250 ML IV SCH (07:32)
[2023-09-30] MEDS: DexAMETHasone SOD PHOS 10MG/1ML VIAL INJ IV SCH (07:32)
[2023-09-30] MEDS: PANTOPRAZOLE 40 MG/10 ML VIAL INJ IV SCH (07:51)
[2023-09-30] MEDS: fentaNYL Drip 2500mCg/250mlNS 250 ML IV SCH ×2 (09:46→21:12)
[2023-09-30] MEDS: BUMETANIDE INJECTION 12.5 MG in GIVE UN-DILUTED 0 ML IV SCH ×2 (10:45→23:15)
[2023-09-30] MEDS ORDERED: MAGNESIUM SULFATE 1GM/100ML 100 ML IV ONE (12:30)
[2023-09-30] MEDS ORDERED: VANCOMYCIN 500 MG in D5W 5% 100 ML IV ONE (13:00)
[2023-09-30] MEDS ORDERED: CALCIUM GLUC 1,000mg/50ml-NS 50 ML IV ONE (14:00)
[2023-09-30] MEDS ORDERED: POTASSIUM CHL 20MEQ/100ML 100 ML IV ONE (15:00)
[2023-09-30] MEDS: AMINO ACID INFUSION IN D10W 1,000 ML IV SCH (20:27)
[2023-09-30] MEDS: MIDAZOLAM DRIP 50 mg/50mL 50 ML IV SCH (21:45)
[2023-10-01] VITALS (103 sets, daily range): BP systolic 75–168; BP diastolic 41–97; PULSE 79–118; RESP 36; TEMP 96.6–100; O2SAT 88–100
[2023-10-01] MEDS: ACCU-CHEK COMFORT CURVE STRIP VI SCH ×4 (00:22→18:00)
[2023-10-01] MEDS: InsuLIN REG 1unit/0.01ml Soln (100units/ml) SC SCH ×4 (00:25→17:57)
[2023-10-01] MEDS: ALBUTEROL SULF 2.5 MG/0.5ML(0.5%) NEB SOLN NEB SCH ×6 (02:00→22:45)
[2023-10-01] MEDS: IPRATROPIUM BROM 0.5 MG/2.5ML INH SOL NEB SCH ×6 (02:00→22:44)
[2023-10-01] MEDS ORDERED: BUMETANIDE INJECTION 50 ML ONE (02:28)
[2023-10-01] MEDS: BUMETANIDE INJECTION 12.5 MG in GIVE UN-DILUTED 0 ML IV SCH (02:52)
[2023-10-01] MEDS: SODIUM BICARBONATE 50ML VIAL 150 ML in D5W 5% 1,000 ML IV SCH (04:03)
[2023-10-01 05:09] LABS: Potassium 3.6 mmol/L (3.5-5.1)
[2023-10-01 05:11] LABS: Calcium 7.4 mg/dL (8.5-10.1)
[2023-10-01 05:15] LABS: BUN/Creatinine Ratio 31.4 (10.0-20.0)
[2023-10-01 05:17] LABS: Albumin 2.3 g/dL (3.2-4.8)
[2023-10-01 05:18] LABS: Phosphorus 4.6 mg/dL (2.4-5.1)
[2023-10-01 06:03] LABS: Magnesium 1.7 mg/dL (1.6-2.6)
[2023-10-01] MEDS: METOCLOPRAMIDE HCL 5MG/ml INJ 2ml VIAL IV SCH ×3 (06:45→22:27)
[2023-10-01 08:32] LABS: White Blood Cell 4.6 10^3/uL (4.4-10.8)
[2023-10-01 08:33] LABS: Hematocrit 24.4 % (36.0-46.0); Mean Corpuscular Hemoglobin 27.8 pg (28.0-32.0); Mean Corpuscular Hgb Conc. 32.8 g/dL (32.0-36.0); Mean Corpuscular Volume 84.6 fL (80.0-100.0); Red Blood Cells 2.89 10^6/uL (4.0-5.20); Red Cell Distribution Width 16.4 % (11.8-14.3)
[2023-10-01 08:52] LABS: Basophils % (manual) 0 (0.0-2.0); Blast Cells 0; Eosinophils % (manual) 0 (0-7); Metamyelocytes % 0; Myelocytes % 0; Promyelocytes % 0; Reactive Lymphocytes 0
[2023-10-01] MEDS: PHENYLEPHRINE INJ 80 MG in SODIUM CHL 0.9% 242 ML IV SCH (09:30)
[2023-10-01] MEDS: VASOPRESSIN 20 UNITS in SODIUM CHL 0.9% 99 ML IV SCH ×2 (09:42→21:07)
[2023-10-01] MEDS: APIXABAN 5 MG TAB PO SCH ×3 (09:42→22:27)
[2023-10-01] MEDS: PANTOPRAZOLE 40 MG/10 ML VIAL INJ IV SCH (09:49)
[2023-10-01] MEDS: DexAMETHasone SOD PHOS 10MG/1ML VIAL INJ IV SCH (09:50)
[2023-10-01] MEDS: CEFEPIME 1GM/ 50ML 50 ML IV SCH ×2 (09:50→22:27)
[2023-10-01 10:03] LABS: Base Excess 2.6 mmol/L (-2.0-2.0)
[2023-10-01] MEDS: NOREPINEPHRINE BITARTRATE 32 MG in SODIUM CHL 0.9% 218 ML IV SCH (11:00)
[2023-10-01 14:50] LABS: Band Neutrophils % (manual) 1; Lymphocytes % (manual) 2 (10.0-50.0); Monocytes % (manual) 2 (0-12)
[2023-10-01 14:56] LABS: Platelet Estimate Markedly Decreased
[2023-10-01] MEDS: EPINEPHrine HCL 250 ML IV SCH (19:30)
[2023-10-01] MEDS: AMINO ACID INFUSION IN D10W 1,000 ML IV SCH (20:31)
[2023-10-01] MEDS: MIDAZOLAM DRIP 50 mg/50mL 50 ML IV SCH (21:45)
[2023-10-02] VITALS (74 sets, daily range): BP systolic 51–142; BP diastolic 30–92; PULSE 10–122; RESP 7–36; TEMP 97.3–99.9; O2SAT 82–100
[2023-10-02] MEDS: BUMETANIDE INJECTION 12.5 MG in GIVE UN-DILUTED 0 ML IV SCH ×2 (00:15→06:09)
[2023-10-02] MEDS: ACCU-CHEK COMFORT CURVE STRIP VI SCH ×3 (00:55→12:00)
[2023-10-02] MEDS: ALBUTEROL SULF 2.5 MG/0.5ML(0.5%) NEB SOLN NEB SCH ×4 (03:04→14:59)
[2023-10-02] MEDS: IPRATROPIUM BROM 0.5 MG/2.5ML INH SOL NEB SCH ×4 (03:05→14:59)
[2023-10-02] MEDS: fentaNYL Drip 2500mCg/250mlNS 250 ML IV SCH ×2 (03:43→10:56)
[2023-10-02 05:22] LABS: Hematocrit 26.3 % (36.0-46.0); Hemoglobin 8.6 g/dL (12.2-16.2); Mean Corpuscular Hemoglobin 28.2 pg (28.0-32.0); Mean Corpuscular Hgb Conc. 32.9 g/dL (32.0-36.0); Mean Corpuscular Volume 85.7 fL (80.0-100.0); Red Blood Cells 3.06 10^6/uL (4.0-5.20); Red Cell Distribution Width 16.4 % (11.8-14.3)
[2023-10-02 05:28] LABS: Band Neutrophils % (manual) 0; Basophils % (manual) 0 (0.0-2.0); Blast Cells 0; Eosinophils % (manual) 0 (0-7); Metamyelocytes % 0; Myelocytes % 0; Promyelocytes % 0; Reactive Lymphocytes 0
[2023-10-02 05:35] LABS: Albumin 2.6 g/dL (3.2-4.8); Alkaline Phosphatase 255 U/L (46-116); Anion Gap 14 (5-15); Aspartate Aminotransferase 111 U/L (13-40); Calcium 7.2 mg/dL (8.7-10.4); Carbon Dioxide 26 mmol/L (20-30); Chloride 89 mmol/L (98-107); Glucose 130 mg/dL (74-106); Magnesium 1.8 mg/dL (1.6-2.6); Sodium 129 mmol/L (136-145)
[2023-10-02 05:36] LABS: Bilirubin, Total 0.3 mg/dL (0.2-1.0); Phosphorus 6.1 mg/dL (2.4-5.1); Total Protein 4.1 g/dL (5.7-8.2)
[2023-10-02 05:46] LABS: Alanine Aminotransferase 100 U/L (7-40)
[2023-10-02 05:57] LABS: Blood Urea Nitrogen 95 mg/dL (9-23)
[2023-10-02] MEDS: InsuLIN REG 1unit/0.01ml Soln (100units/ml) SC SCH ×3 (06:00→12:00)
[2023-10-02] MEDS: METOCLOPRAMIDE HCL 5MG/ml INJ 2ml VIAL IV SCH ×2 (06:15→14:54)
[2023-10-02 08:04] LABS: Lymphocytes % (manual) 5 (10.0-50.0); Monocytes % (manual) 3 (0-12)
[2023-10-02 08:05] LABS: Platelet Estimate Decreased
[2023-10-02] MEDS: VASOPRESSIN 20 UNITS in SODIUM CHL 0.9% 99 ML IV SCH (08:14)
[2023-10-02 08:38] LABS: Base Excess -3.9 mmol/L (-2.0-2.0)
[2023-10-02] MEDS: PHENYLEPHRINE INJ 80 MG in SODIUM CHL 0.9% 242 ML IV SCH (08:43)
[2023-10-02] MEDS: APIXABAN 5 MG TAB PO SCH (08:44)
[2023-10-02] MEDS: DexAMETHasone SOD PHOS 10MG/1ML VIAL INJ IV SCH (10:29)
[2023-10-02] MEDS: PANTOPRAZOLE 40 MG/10 ML VIAL INJ IV SCH (10:29)
[2023-10-02] MEDS: CEFEPIME 1GM/ 50ML 50 ML IV SCH (10:30)
[2023-10-02] MEDS: NOREPINEPHRINE BITARTRATE 32 MG in SODIUM CHL 0.9% 218 ML IV SCH (11:00)
[2023-10-02] MEDS ORDERED: CALCIUM GLUC 1,000mg/50ml-NS 50 ML IV ONE (14:15)
[2023-10-02] MEDS ORDERED: MORPHINE SULFATE INJ 2 MG/ml SYRG IV PRN (16:00)
[2023-10-02] MEDS ORDERED: LORazepam 2MG/ML-1ML VIAL IV PRN (16:00)
== END 2023-10-02 17:23 | DRG 720 ==
LOC: EDBD 00:28 → ER 00:28 → TELE 06:42 → TELE-CENTR 09-10 22:30 → ICU WEST 09-12 12:06 → DOU IN ICU 09-25 12:46 → ICU CENTRL 09-28 09:55
PROVIDERS: ADMIT Nurse Practitioner Family; ATTEND Hospitalist
PROC: 05H933Z Insertion of Infusion Device into Right Brachial Vein, Percutaneous Approach (ICD-10-PCS; 2023-09-11)
PROC: B54MZZA Ultrasonography of Right Upper Extremity Veins, Guidance (ICD-10-PCS; 2023-09-11)
PROC: 0BH17EZ Insertion of Endotracheal Airway into Trachea, Via Natural or Artificial Opening (ICD-10-PCS; 2023-09-12)
PROC: 5A1955Z Respiratory Ventilation, Greater than 96 Consecutive Hours (ICD-10-PCS; 2023-09-12)
PROC: 5A09357 Assistance with Respiratory Ventilation, Less than 24 Consecutive Hours, Continuous Positive Airway Pressure (ICD-10-PCS; 2023-09-12)
PROC: 03HY32Z Insertion of Monitoring Device into Upper Artery, Percutaneous Approach (ICD-10-PCS; 2023-09-12)
PROC: 05HM33Z Insertion of Infusion Device into Right Internal Jugular Vein, Percutaneous Approach (ICD-10-PCS; 2023-09-12)
PROC: B543ZZA Ultrasonography of Right Jugular Veins, Guidance (ICD-10-PCS; 2023-09-12)
PROC: 30233N1 Transfusion of Nonautologous Red Blood Cells into Peripheral Vein, Percutaneous Approach (ICD-10-PCS; 2023-09-15)
PROC: 30233R1 Transfusion of Nonautologous Platelets into Peripheral Vein, Percutaneous Approach (ICD-10-PCS; 2023-09-16)
PROC: 5A09357 Assistance with Respiratory Ventilation, Less than 24 Consecutive Hours, Continuous Positive Airway Pressure (ICD-10-PCS; 2023-09-23)
PROC: 5A0935A Assistance with Respiratory Ventilation, Less than 24 Consecutive Hours, High Flow/Velocity Cannula (ICD-10-PCS; 2023-09-25)
PROC: 0W9B3ZX Drainage of Left Pleural Cavity, Percutaneous Approach, Diagnostic (ICD-10-PCS; 2023-09-26)
PROC: 5A0935A Assistance with Respiratory Ventilation, Less than 24 Consecutive Hours, High Flow/Velocity Cannula (ICD-10-PCS; 2023-09-26)
PROC: 5A1955Z Respiratory Ventilation, Greater than 96 Consecutive Hours (ICD-10-PCS; principal; 2023-09-27)
PROC: 5A0935A Assistance with Respiratory Ventilation, Less than 24 Consecutive Hours, High Flow/Velocity Cannula (ICD-10-PCS; 2023-09-27)
DX: A41.9 Sepsis, unspecified organism (principal); J96.01 Acute respiratory failure with hypoxia; R65.21 Severe sepsis with septic shock; J10.00 Influenza due to other identified influenza virus with unspecified type of pneumonia; J90 Pleural effusion, not elsewhere classified; D68.69 Other thrombophilia; G93.41 Metabolic encephalopathy; E87.29 Other acidosis; I31.39 Other pericardial effusion (noninflammatory); E87.20 Acidosis, unspecified; Z66 Do not resuscitate; Z20.822 Contact with and (suspected) exposure to COVID-19; I21.A1 Myocardial infarction type 2; E46 Unspecified protein-calorie malnutrition; N17.9 Acute kidney failure, unspecified; R64 Cachexia; D69.3 Immune thrombocytopenic purpura; C85.90 Non-Hodgkin lymphoma, unspecified, unspecified site; D69.6 Thrombocytopenia, unspecified; J10.1 Influenza due to other identified influenza virus with other respiratory manifestations; D64.9 Anemia, unspecified; N39.0 Urinary tract infection, site not specified; E86.0 Dehydration; E88.09 Other disorders of plasma-protein metabolism, not elsewhere classified; R31.0 Gross hematuria; E87.0 Hyperosmolality and hypernatremia; E66.9 Obesity, unspecified; E87.6 Hypokalemia; N13.6 Pyonephrosis; I12.9 Hypertensive chronic kidney disease with stage 1 through stage 4 chronic kidney disease, or unspecified chronic kidney disease; N18.9 Chronic kidney disease, unspecified; Z68.32 Body mass index [BMI] 32.0-32.9, adult; Z82.49 Family history of ischemic heart disease and other diseases of the circulatory system; Z80.3 Family history of malignant neoplasm of breast; Z85.118 Personal history of other malignant neoplasm of bronchus and lung; Z99.11 Dependence on respirator [ventilator] status; I82.411 Acute embolism and thrombosis of right femoral vein; I82.431 Acute embolism and thrombosis of right popliteal vein; I82.441 Acute embolism and thrombosis of right tibial vein
CPT/HCPCS: 32555; 36415; 36600; 70450; 71045; 74018; 74176; 76604; 80048; 80053; 80069; 80202; 80307; 81001; 82040; 82140; 82270; 82570; 82607; 82668; 82728; 82746; 82805; 82962; 83010; 83540; 83550; 83605; 83615; 83735; 83880; 83986; 84100; 84156; 84300; 84439; 84443; 84484; 85007; 85014; 85018; 85025; 85027; 85045; 85379; 85610; 85652; 85730; 86141; 86431; 86850; 86900; 86901; 86920; 87040; 87070; 87077; 87081; 87086; 87205; 87426; 87804; 89051; 92610; 93005; 93306; 93970; 94002; 94003; 94640; 94660; 99291; A4565; A4618; C9113; G0378; G9035; J0330; J1100; J1815; J2250; J2405; J2704; J3480; J7060; P9047